=== PATIENT | female | born 1950 | race Caucasian/White ===

== ENCOUNTER → 2016-09-25 | Outpatient (CLI) | payer OTHER ==
[~2016-09-25] MED LIST: PANT40TA PO
--- NOTE | 2016-09-25 11:12 | DIAGNOSTIC IMAGING REPORT ---
CHEST CT WITHOUT CONTRAST CT DOSE: 197.55 mGy.cm HISTORY: Lung nodules PULM NODULES TECHNIQUE: Multiaxial CT images of the chest were performed without contrast. COMPARISON: 08/25/2015 FINDINGS: The lungs are clear. The mediastinal vascular structures are within normal limits. No mediastinal or hilar lymphadenopathy. No pleural effusion or pneumothorax. Limited views of the upper abdomen demonstrate a normal liver and spleen. Pulmonary nodularity is nonprogressive. No focal infiltrate. No significant mediastinal or hilar adenopathy. IMPRESSION: Minimal parenchymal nodularity unchanged from the prior study. No new or interval process. Electronically signed by: Francisco Lemos M.D. 09/25/2016 11:11 AM Dictated Date/Time: 09/25/2016 11:08 AM
== END | disposition home or self-care (01) ==
LOC: C.CTS 10:02
PROVIDERS: ATTEND Family Medicine
DX: R91.8 Other nonspecific abnormal finding of lung field (principal)

== ENCOUNTER → 2017-09-23 | Outpatient (CLI) | payer OTHER ==
--- NOTE | 2017-09-23 09:27 | DIAGNOSTIC IMAGING REPORT ---
(CHEST) THORAX WITHOUT CT DOSE: 165.05 mGycm HISTORY: R91.8 Pulmonary nodules TECHNIQUE: Multiaxial CT images of the chest were performed without contrast. A dose lowering technique was utilized adhering to the principles of ALARA. COMPARISON: Chest CT 09/25/2016 and 08/25/2015. FINDINGS: The central airways are patent. No pleural effusions. No pneumothorax. Biapical pleural-parenchymal scarlike densities remain unchanged. Emphysema. Stable 4 mm nodule within the right lung apex on image 45. Stable 3 mm nodule in the right upper lobe medially abutting the mediastinal surface on image 133. Calcified granuloma the base of the right lower lobe. Stable fibronodular nodule within the left lower lobe on image 189. No new pulmonary nodules identified. No suspicious lytic or blastic osseous lesions. Calcified granulomas within the spleen. Bilateral nephrolithiasis. Nodular thickening and partially calcified right adrenal gland, unchanged. Stable 11 mm hyperdense lesion within the upper pole the left kidney. Bilateral thyroid nodules with the largest on the right measuring 11 mm. Moderate thickening of the esophagus which is partially fluid-filled and mildly distended. This remains unchanged. Calcified right hilar lymph nodes. No mediastinal or hilar lymphadenopathy. The heart remains borderline enlarged. Normal caliber thoracic aorta. IMPRESSION: 1. Stable subcentimeter bilateral pulmonary nodules. These demonstrate greater than 2 year stability and are therefore likely benign. No new pulmonary nodules identified. 2. Emphysema. 3. No change in the mildly dilated esophagus demonstrating a moderately thickened wall. If not previously performed, endoscopy is recommended for further evaluation. 4. Additional findings as described above. Electronically signed by: Norman Moore M.D. 09/23/2017 9:26 AM Dictated Date/Time: 09/23/2017 9:17 AM
== END | disposition home or self-care (01) ==
LOC: C.CTS 08:13
PROVIDERS: ATTEND Nurse Practitioner
DX: R91.8 Other nonspecific abnormal finding of lung field (principal); J43.9 Emphysema, unspecified

== ENCOUNTER 2022-01-04 16:55 | Inpatient (IN) ==
[2022-01-04] MEDS ORDERED: SODIUM CHLORIDE 0.9% 500 ML IV STA (17:24)
[2022-01-04] MEDS ORDERED: dilTIAZem HCl 5 MG/ML 5 ML VIAL IV STA (17:24)
[2022-01-04] MEDS ORDERED: dilTIAZem HCl 5 MG/ML 5 ML VIAL IV ONE (17:24)
--- NOTE | 2022-01-04 17:32 | Emergency Department Note ---
History of Present Illness General Chief complaint: Referred by Doctor Stated complaint: REF BY MIC SCHERER Time Seen by Provider: 01/04/22 17:18 Source: patient History of Present Illness Provider complaint: Palpitations Onset (ago): hour(s) Location: chest Pain Consistency: + constant Quality: + other (Fluttering in chest) Relieved By: + none Associated symptoms: no chest pain, no cough, no diaphoresis, no fever/chills, no nausea/vomiting, no shortness of breath, no syncope or no weakness This is a 71-year-old female sent here from her doctor's office for new onset A. fib with RVR. The patient states that she was going to her doctor's office for routine checkup. While there she developed fluttering in her chest. Her doctor took her pulse and noted that she was tachycardic and had atrial fibrillation. She was immediately sent here. She continues to have palpitations. She denies any other symptoms. She has had no lightheadedness or weakness. She is not diaphoretic or having any chest discomfort or pain or shortness of breath. She denies any recent illness, fever, cough or cold symptoms, abdominal pain, vomiting, diarrhea or urinary symptoms. She did have some leg swelling at the [facility] but she states that she was up and walking around and standing on her feet quite a bit. The swelling has gone away. She denies any leg pain. She does not drink alcohol. She has no history of heart disease. Home Medications Medication Instructions Recorded Confirmed Type buspirone 7.5 mg tablet 7.5 mg PO BID PRN anxiety #30 tabs 06/20/21 01/04/22 Rx lorazepam 0.5 mg tablet 0.5 mg PO DAILY PRN anxiety #10 06/20/21 01/04/22 Rx tabs pantoprazole 40 mg tablet,delayed 40 mg PO DAILY #30 tabs 06/20/21 01/04/22 Rx release rizatriptan 10 mg tablet 10 mg PO Q2H PRN migraine headache 06/20/21 01/04/22 Rx #30 tabs lisinopril 20 mg tablet 20 mg PO DAILY #30 tabs 11/29/21 01/04/22 Rx collagen,hydrolysate 500 mg-biotin 1 cap PO DAILY 01/04/22 01/04/22 History 800 mcg-ascorbic acid 50 mg capsule melatonin 5 mg chewable tablet 5 mg PO HS PRN Sleep 01/04/22 01/04/22 History Allergies Allergy/AdvReac Type Severity Reaction Status Date / Time No Known Allergies Allergy Verified 01/04/22 17:52 Past Med/Surg History Medical History (Updated 01/04/22 @ 18:37 by Antoni Ureña MD) Achalasia type 1, was followed by [facility], s/p POEM proce done before 2016 Adrenal nodule Anemia Bleeding disorder Esophageal stricture Has had multiple dilations over the last several years. Laceration Lung mass Palpitations Solitary pulmonary nodule Was followed by [facility], last scan in 2018, at that time nodule remains stable, no further follow-up recommended Surgical History History of elbow surgery Family History Father Gallbladder disease Prostate cancer Sister Lung disease Mother Breast cancer Denies family history of Ovarian cancer Myocardial infarction Colorectal cancer Social History Smoking Status: Never smoker Second Hand Exposure: No; Hx Alcohol Use: No Hx Substance Use: No Preferred Language: Dutch Communication Ability: Effective Visual Impairment: Limited Hearing Ability: Normal [employer] Required: No Beliefs That Will Affect Care: None marital status: Current Living Situation: Spouse current occupational status: employed How many Children do You have: 2 Feels Safe at Home: Yes caffeine: Yes during the past year weight has: remained stable Dental Care, Regularly: Yes Physical Activity Frequency: 1-2 Times per Week Seatbelt Use: always Sunscreen Use: Yes Do you think of yourself as: straight/heterosexual Gender Identity: Female Assistive Devices: Glasses Review of Systems See HPI for pertinent positives & negatives. and A total of 10 systems reviewed and were otherwise negative Physical Exam Vital Signs Vital Signs - 24 hr 01/04/22 16:57 01/04/22 17:24 01/04/22 17:29 Temperature 36.1 C L Temperature Source Temporal Artery Scan Pulse Rate 139 H 161 H 141 H Pulse Rate from SpO2 Sensor 144 H 130 H Respiratory Rate 20 18 19 Respiratory Effort / Characteristics Non-Labored Spontaneous Respiratory Depth Normal Respiratory Pattern Regular Blood Pressure 129/97 Blood Pressure Mean 107 Pulse Oximetry 99 99 99 Oxygen Delivery Method Room Air Sepsis Recent Fever Within 48 Hours No Sepsis New/Unexplained Change in Mental Status No Sepsis Action Taken by Nursing No Action Required 01/04/22 17:29 01/04/22 17:30 01/04/22 17:39 Temperature Temperature Source Pulse Rate 115 H 103 H Pulse Rate from SpO2 Sensor 115 H 102 H Respiratory Rate 16 17 Respiratory Effort / Characteristics Respiratory Depth Respiratory Pattern Blood Pressure 141/105 H Blood Pressure Mean 117 Pulse Oximetry 98 99 Oxygen Delivery Method Sepsis Recent Fever Within 48 Hours Sepsis New/Unexplained Change in Mental Status Sepsis Action Taken by Nursing 01/04/22 17:39 01/04/22 17:45 01/04/22 18:00 Temperature Temperature Source Pulse Rate 112 H Pulse Rate from SpO2 Sensor 94 H Respiratory Rate 16 Respiratory Effort / Characteristics Respiratory Depth Respiratory Pattern Blood Pressure 148/91 H 129/88 Blood Pressure Mean 110 101 Pulse Oximetry 98 Oxygen Delivery Method Sepsis Recent Fever Within 48 Hours Sepsis New/Unexplained Change in Mental Status Sepsis Action Taken by Nursing 01/04/22 18:00 Temperature Temperature Source Pulse Rate 122 H Pulse Rate from SpO2 Sensor 125 H Respiratory Rate 27 H Respiratory Effort / Characteristics Respiratory Depth Respiratory Pattern Blood Pressure Blood Pressure Mean Pulse Oximetry 97 Oxygen Delivery Method Sepsis Recent Fever Within 48 Hours Sepsis New/Unexplained Change in Mental Status Sepsis Action Taken by Nursing Constitutional: Vital signs reviewed. Eyes: Pupils are equal round reactive to light. Conjunctiva are noninjected. ENT: Pharynx is clear without erythema or exudate. Mucous membranes are moist. Neck supple without meningeal signs. Respiratory: Clear to auscultation bilaterally. Breath sounds are equal bilaterally. Cardiovascular: Tachycardic. Heart rate 155. GI: Soft, nondistended and nontender. Bowel sounds are present. Musculoskeletal: No peripheral edema. No lower extremity tenderness. Integumentary: No cyanosis. or jaundice. Neurological: The patient is awake and alert. No focal deficits. Psychiatric: Anxious. Course Administered Medications Discontinued Medications Diltiazem HCl (Diltiazem Hcl 5 Mg/Ml 5 Ml Vial) Confirm Administered Dose 25 mg IV .STSocialDeck-MED ONE Stop: 01/04/22 17:25 Last Admin: 01/04/22 17:30 Dose: Not Given Documented By: RDD Diltiazem HCl (Diltiazem Hcl 5 Mg/Ml 5 Ml Vial) 10 mg IV NOW STA Stop: 01/04/22 17:25 Last Admin: 01/04/22 17:27 Dose: 10 mg Documented By: YAMINI Co-signed By: YAEL Sodium Chloride (Nss) 500 mls @ 999 mls/hr IV .Q31M STA Stop: 01/04/22 17:54 Last Admin: 01/04/22 17:27 Dose: 999 mls/hr Documented By: YAMINI Critical Care Time Critical Care Time: Yes Total Critical Care Time: 35 I have personally spent approximately 35 minutes of critical care time in the direct management of this patient. This includes bedside care, interpretation of diagnostic studies, and testing, discussion with consultants, patient, and family members, and other required patient management activities. These minutes are in excess of all separately billable procedures. Medical Decision Making Differential Diagnosis Dysrhythmia, A. fib with RVR, metabolic derangement, hyperthyroidism, electrolyte abnormality, ACS Medical Records Attestation: I reviewed the patient's medical records. I did perform a limited focused review of portions of the patient's old chart on the electronic medical record. The patient was seen at her doctor's office today and found to be in A. fib and tachycardic and was sent here immediately. Home Medications Current Medication List: was personally reviewed by me Laboratory Data Attestation: I reviewed the patient's lab results. Result diagrams: 01/04/22 Unknown 01/04/22 17:20 Lab Results 01/04/22 01/04/22 01/04/22 Range/Units 17:20 17:20 17:39 WBC (4.8-10.8) K/ul RBC (3.93-5.22) M/uL Hgb (12.0-16.0) g/dl Hct (34.1-44.9) % MCV (80.0-100.0) fL MCH (25.0-34.0) pg MCHC (32.0-36.0) g/dL RDW Std Deviation (36.4-46.3) fL RDW Coeff of Alfonzo (11.5-14.5) % Plt Count (130-400) K/uL MPV (9.4-12.3) fL Immature Gran % (Auto) % Neut % (Auto) % Lymph % (Auto) % Beadle % (Auto) % Eos % (Auto) % Baso % (Auto) % Neut # (Auto) (1.4-6.5) K/uL Lymph # (Auto) (1.2-3.4) K/uL Beadle # (Auto) (0.24-0.82) K/uL Eos # (Auto) (0-0.50) K/uL Baso # (Auto) (0-0.2) K/uL Immature Gran # (Auto) (0.00-0.02) K/uL Sodium 138 (136-145) mmol/L Potassium 4.0 (3.5-5.1) mmol/L Chloride 103 (98-107) mmol/L Carbon Dioxide 26 (21-32) mmol/L Anion Gap 9 (3-11) BUN 19 (6-23) mg/dl Creatinine 1.03 (0.6-1.2) mg/dl Est Cr Clr Drug Dosing 47.6 ml/min Est GFR ( Amer) 63.8 ml/min Est GFR (Non-Af Amer) 55.0 ml/min BUN/Creatinine Ratio 18.4 (10-20) Glucose 86 (70-99(Fasting)) mg/dl Calcium 9.5 (8.5-10.1) mg/dl Magnesium 1.9 (1.7-2.4) mg/dl Total Bilirubin 1.1 H (0.2-1.0) mg/dl AST 19 (13-39) U/L ALT 17 (7-52) U/L Alkaline Phosphatase 74 (34-104) U/L Troponin I High Sens 7.3 (0-14) pg/ml Total Protein 6.4 (6.0-8.3) gm/dl Albumin 4.3 (3.4-5.0) gm/dl Globulin 2.1 L (2.5-4.0) gm/dl Albumin/Globulin Ratio 2.0 (0.9-2) TSH 1.463 (0.300-4.500) uIu/ml SARS-CoV-2, RNA, NAAT NEGATIVE (NEGATIVE) 01/04/22 Range/Units Unknown WBC 7.59 (4.8-10.8) K/ul RBC 3.62 L (3.93-5.22) M/uL Hgb 11.7 L (12.0-16.0) g/dl Hct 35.7 (34.1-44.9) % MCV 98.6 (80.0-100.0) fL MCH 32.3 (25.0-34.0) pg MCHC 32.8 (32.0-36.0) g/dL RDW Std Deviation 46.2 (36.4-46.3) fL RDW Coeff of Alfonzo 12.7 (11.5-14.5) % Plt Count 221 (130-400) K/uL MPV 9.9 (9.4-12.3) fL Immature Gran % (Auto) 0.3 % Neut % (Auto) 66.0 % Lymph % (Auto) 20.8 % Beadle % (Auto) 10.0 % Eos % (Auto) 1.7 % Baso % (Auto) 1.2 % Neut # (Auto) 5.01 (1.4-6.5) K/uL Lymph # (Auto) 1.58 (1.2-3.4) K/uL Beadle # (Auto) 0.76 (0.24-0.82) K/uL Eos # (Auto) 0.13 (0-0.50) K/uL Baso # (Auto) 0.09 (0-0.2) K/uL Immature Gran # (Auto) 0.02 (0.00-0.02) K/uL Sodium (136-145) mmol/L Potassium (3.5-5.1) mmol/L Chloride (98-107) mmol/L Carbon Dioxide (21-32) mmol/L Anion Gap (3-11) BUN (6-23) mg/dl Creatinine (0.6-1.2) mg/dl Est Cr Clr Drug Dosing ml/min Est GFR ( Amer) ml/min Est GFR (Non-Af Amer) ml/min BUN/Creatinine Ratio (10-20) Glucose (70-99(Fasting)) mg/dl Calcium (8.5-10.1) mg/dl Magnesium (1.7-2.4) mg/dl Total Bilirubin (0.2-1.0) mg/dl AST (13-39) U/L ALT (7-52) U/L Alkaline Phosphatase (34-104) U/L Troponin I High Sens (0-14) pg/ml Total Protein (6.0-8.3) gm/dl Albumin (3.4-5.0) gm/dl Globulin (2.5-4.0) gm/dl Albumin/Globulin Ratio (0.9-2) TSH (0.300-4.500) uIu/ml SARS-CoV-2, RNA, NAAT (NEGATIVE) Imaging Data Radiologist's Impression: Chest X-Ray 01/04/22 17:25 XR chest 1V portable HISTORY: Dysrhythmia COMPARISON: Chest 08/25/2015. FINDINGS: No pneumothorax. The heart remains mildly enlarged. There is mild central pulmonary vascular congestion without overt edema. There are trace bilateral pleural effusions. No new focal lung consolidations to suggest pneumonia. Calcified granuloma within the right lung base again noted. IMPRESSION: Cardiomegaly with mild central pulmonary vascular congestion and trace bilateral pleural effusions. ACT 112: Negative or not required by law. Electronically signed by: Norman Moore M.D. 01/04/2022 6:19 PM ECG Data Attestation: I personally reviewed and interpreted this ECG as follows: Indication: + palpitations and + tachycardia Rate (beats per minute): 141 Rhythm: + atrial fibrillation ECG ST segments: + Nonspecific ST abnormalities; no ST elevation ECG Findings: + PVCs Comparison ECG Date: no prior available MDM Narrative I did evaluate the patient as noted above. The patient went to her doctor's office today for routine checkup. She developed palpitations there and was found to be tachycardic with new onset atrial fibrillation. She otherwise denies any complaints and has no chest discomfort or pain or shortness of breath or lightheadedness. She is not sure if she has had these palpitations in the past. She does not drink alcohol. IV access was established. I did place an order for continuous cardiac monitoring. The monitor showed atrial fibrillation with a heart rate of 155. I did order and personally review the patient's 12- lead EKG as described above. She has A. fib with RVR with a heart rate of 141. There are nonspecific ST changes as well as a PVC. I did order normal saline IV as well as Cardizem 10 mg IV. Her heart rate did come down to about 120. She does state that her palpitations are gone despite her still being in atrial fibrillation with tachycardia. She was started on a continuous Cardizem drip. I did order and personally reviewed the images of the patient's chest x-ray as described above. She has mild cardiomegaly with central pulmonary vascular congestion. I did order and review the patient's blood work as noted in the electronic medical record. CBC demonstrates a hemoglobin of 11.7. There is no leukocytosis. CMP is unremarkable other than a total bili of 1.1. TSH and troponin are within normal limits. Her heart rate is approximately 100 on the Cardizem drip. She is having no symptoms. I did discuss the case with the hospitalist and senior case manager. The decision for initiation of anticoagulation was deferred to the inpatient team. Screening COVID test is negative. Impression & Plan Atrial fibrillation with rapid ventricular response, New onset a-fib Discharge Plan Visit Data Chief Complaint: Referred by Doctor Stated Complaint: REF BY MIC SCHERER ED Provider: Antoni Ureña Discharge Problem: Atrial fibrillation with rapid ventricular response, New onset a-fib Patient Disposition: Being Evaluated by Hospitalist Forms Stand Alone Forms: My [facility] Prescriptions Prescriptions: No Action lisinopril 20 mg tablet 20 mg PO DAILY Qty: 30 11RF Rx Instructions: pt aware dose change lorazepam 0.5 mg tablet 0.5 mg PO DAILY PRN (Reason: anxiety) Qty: 10 1RF Rx Instructions: as needed for panic attacks pantoprazole 40 mg tablet,delayed release (DR/EC) 40 mg PO DAILY Qty: 30 11RF rizatriptan 10 mg tablet 10 mg PO Q2H PRN (Reason: migraine headache) Qty: 30 5RF Rx Instructions: until response; not to exceed 3 doses in a 24 hour period buspirone 7.5 mg tablet 7.5 mg PO BID PRN (Reason: anxiety) Qty: 30 11RF melatonin 5 mg Tablet,Chewable 5 mg PO HS PRN (Reason: Sleep) [id number] acid 500 mg-800 mcg- 50 mg Capsule 1 cap PO DAILY Referrals Referrals: Ghazal Alcantar CRNP [Primary Care Provider] -
[2022-01-04] MEDS ORDERED: STAT IV Infusion **Titration per Protocol STA (17:39)
[2022-01-04 17:59] LABS: Basophils # (auto) 0.09 K/uL (0-0.2); Basophils % (auto) 1.2 %; Eosinophils # (auto) 0.13 K/uL (0-0.50); Eosinophils % (auto) 1.7 %; Hematocrit (blood only) 35.7 % (34.1-44.9); Hemoglobin 11.7 g/dl (12.0-16.0); Immature Granulocytes # (auto) 0.02 K/uL (0.00-0.02); Immature Granulocytes % (auto) 0.3 %; Lymphocytes # (auto) 1.58 K/uL (1.2-3.4); Lymphocytes % (auto) 20.8 %; Mean Corpuscular Hemoglobin 32.3 pg (25.0-34.0); Mean Corpuscular Hgb Conc 32.8 g/dL (32.0-36.0); Mean Corpuscular Volume 98.6 fL (80.0-100.0); Mean Platelet Volume 9.9 fL (9.4-12.3); Monocytes # (auto) 0.76 K/uL (0.24-0.82); Neutrophils # (auto) 5.01 K/uL (1.4-6.5); Platelet Count 221 K/uL (130-400); RDW Coefficient of Variation 12.7 % (11.5-14.5); RDW Standard Deviation 46.2 fL (36.4-46.3); Red Blood Count 3.62 M/uL (3.93-5.22); White Blood Count 7.59 K/ul (4.8-10.8)
--- NOTE | 2022-01-04 18:21 | XRay Report ---
XR chest 1V portable HISTORY: Dysrhythmia COMPARISON: Chest 08/25/2015. FINDINGS: No pneumothorax. The heart remains mildly enlarged. There is mild central pulmonary vascula r congestion without overt edema. There are trace bilateral pleural effusions. No new focal lung cons olidations to suggest pneumonia. Calcified granuloma within the right lung base again noted. IMPRESSION: Cardiomegaly with mild central pulmonary vascular congestion and trace bilateral pleural effusions. ACT 112: Negative or not required by law. Electronically signed by: Norman Moore M.D. 01/04/2022 6:19 PM
[2022-01-04 18:22] LABS: Albumin Level 4.3 gm/dl (3.4-5.0); BUN Creatinine Ratio 18.4 (10-20); Bilirubin,Total 1.1 mg/dl (0.2-1.0); Calcium 9.5 mg/dl (8.5-10.1); Creatinine Clr Calc Pharmacy 47.6 ml/min; Est GFR (African American) 63.8 ml/min; Globulin 2.1 gm/dl (2.5-4.0); Magnesium 1.9 mg/dl (1.7-2.4); Total Protein 6.4 gm/dl (6.0-8.3)
[2022-01-04 18:28] LABS: Troponin I High Sensitivity 7.3 pg/ml (0-14)
[2022-01-04] MEDS: dilTIAZem HCL 125 MG in DEXTROSE 5% 100 ML IV SCH (18:39)
--- NOTE | 2022-01-04 19:39 | History & Physical Report ---
Date of Service January 04, 2022 Assessment & Plan (1) Atrial fibrillation with rapid ventricular response: Plan: - New onset today, is unknown patient went into A. fib as she was asymptomatic when was discovered, however as bad palpitations arrival to the ED - Started on Cardizem gtt in ED, currently at 5/hour. We will add on p.o. Cardizem 30 mg every 6 hours. - K 4.0, Mg++ 1.9, will give 1 g magnesium with IVF. - LRs at 125cc/hr. - CXR read as pulm vascular congestion with trace effusions, but there is no evidence of volume overload on exam. - TSH 1.463. - Echo in AM. - Cardiology consult placed, appreciate their recommendations. - Will start on Eliquis; per chart review, history of bleeding ulcers ~ 5 years ago, remains on pantoprazole 40 mg daily. (2) DONNA (acute kidney injury): Plan: - Cr mildly elevated at 1.03, baseline 0.80. - Hold lisinopril, provide IVF, repeat on AM labs. (3) Hypertension: Plan: - Home regimen includes lisinopril 20 mg daily, her Cr is 1.03, baseline is 0.80. - Hold lisinopril tomorrow. Will be on PO Cardizem in addition to Cardizem gtt overnight. (4) Chronic GERD: Plan: - With bleeding ulcers 5-6 years ago, asymptomatic since, will still anticoagulate with Eliquis for now and continue protonix, monitor for s/s of GI bleed. (5) Anxiety: Plan: - Continue BuSpar 7.5 mg BID, lorazepam 0.5 mg prn. (6) Migraine headache: Plan: - History of, has rizatriptan prn for migraines however they have significantly decreased since HTN has been controlled with lisinopril. (7) Solitary pulmonary nodule: Plan: - [facility], last scan in 2018, at that time nodule remains stable, no further follow-up recommended. Plan - Admit to PCU. - SCDs and Eliquis or VTE ppx. - Full Code. History of Present Illness Chief Complaint: new onset a fib RVR at PCP appt today Primary Care Provider: MENA Chavarria Chhaya Bess is a 71-year-old female with past medical history significant for hypertension, anxiety, PAD 5 years ago GERD, and headaches who is presenting today for recommendation of her PCP for new onset A. fib. Patient was at her PCP today for routine checkup when she was incidentally discovered to be in A. fib RVR based on physical exam and EKG. her promptly brought over here for evaluation. Since arrival, she has noted palpitations, but otherwise has been asymptomatic prior to arrival without chest pain, palpitation, shortness of breath, fatigue, presyncope or syncope. She does not have personal history of A. fib or family history that she is aware of. She had recently worked with the [employer] and noticed swelling in both her legs, however this had resolved after being off her feet. She thinks she has been hydrating okay last couple days, but was with her grandchildren this week and physically active than usual. She history of anxiety and high blood pressure, no known cardiac disease. Upon presentation to ED, patient presented with a heart rate of 161, [id number] after Cardizem drip started. Vitals otherwise within normal limits, hemodynamically stable. Labs significant for slight decrease in hemoglobin, 11.7 today, creatinine slightly bumped at 1.03, baseline 0.8. Potassium 4.0, magnesium 1.9. T bili 1.1, without any other LFT abnormalities. Her troponin is 7.3 TSH is 1.463. COVID-negative. Allergies Allergy/AdvReac Type Severity Reaction Status Date / Time No Known Allergies Allergy Verified 01/04/22 17:52 Home Medications Medication Instructions Recorded Confirmed Type buspirone 7.5 mg tablet 7.5 mg PO BID PRN anxiety #30 tabs 06/20/21 01/04/22 Rx lorazepam 0.5 mg tablet 0.5 mg PO DAILY PRN anxiety #10 06/20/21 01/04/22 Rx tabs pantoprazole 40 mg tablet,delayed 40 mg PO DAILY #30 tabs 06/20/21 01/04/22 Rx release rizatriptan 10 mg tablet 10 mg PO Q2H PRN migraine headache 06/20/21 01/04/22 Rx #30 tabs collagen,hydrolysate 500 mg-biotin 1 cap PO DAILY 01/04/22 01/04/22 History 800 mcg-ascorbic acid 50 mg capsule melatonin 5 mg chewable tablet 5 mg PO HS PRN Sleep 01/04/22 01/04/22 History apixaban 5 mg tablet (Eliquis) 5 mg PO BID #60 tabs 01/05/22 Rx diltiazem HCl 240 mg 240 mg PO DAILY #30 caps 01/05/22 Rx capsule,extended release 24 hr Past Med/Surg History Medical History (Updated 01/05/22 @ 13:51 by Darnell Reid DO) Achalasia type 1, was followed by [facility] [place], s/p POEM proce done before 2016 Adrenal nodule Anemia Bleeding disorder Esophageal stricture Has had multiple dilations over the last several years. Laceration Lung mass Palpitations Solitary pulmonary nodule Was followed by the [facility], last scan in 2018, at that time nodule remains stable, no further follow-up recommended Surgical History History of elbow surgery Family History Father Gallbladder disease Prostate cancer Sister Lung disease Mother Breast cancer Denies family history of Ovarian cancer Myocardial infarction Colorectal cancer Social History Smoking Status: Never smoker Second Hand Exposure: No; Hx Alcohol Use: Yes Hx Substance Use: No Preferred Language: Colombian Communication Ability: Effective Visual Impairment: Limited Hearing Ability: Normal Lining Finisher Required: No Beliefs That Will Affect Care: None marital status: Current Living Situation: Spouse current occupational status: employed How many Children do You have: 2 Feels Safe at Home: Yes caffeine: Yes during the past year weight has: remained stable Dental Care, Regularly: Yes Physical Activity Frequency: 1-2 Times per Week Seatbelt Use: always Sunscreen Use: Yes Do you think of yourself as: straight/heterosexual Gender Identity: Female Assistive Devices: None Review of Systems Review of Systems: Constitutional: No fever/chills, weakness, fatigue, myalgias, anorexia, night sweats Eyes: No diplopia, no worsening or blurred vision ENT: normal hearing, no trouble swallowing Respiratory: No cough, sputum, dyspnea at rest or on exertion Cardiovascular: palpitations since arrival in ED; No chest pain, tightness Abdomen: No pain, nausea, vomiting, diarrhea or constipation : Denies dysuria, hematuria, increased urgency/frequency, urinary retention Musculoskeletal: No joint pain, calf pain, swelling Neurologic: No weakness, numbness/tingling, or balance problems Psychiatric: No anxiety or depression Skin: No rash or itch Physical Exam Physical Exam: Physical exam: General: awake, alert, no apparent distress Head: Normocephalic, atraumatic ENT: PERRL, EOMI, no pharyngeal exudate, mucous membranes moist Chest: Clear to auscultation, on room air, no adventitious breath sounds Cardiac: Tachycardic with irregular rhythm consistent with A. fib RVR; no murmur, no JVD, normal peripheral pulses, good capillary refill Abdominal: NABS x 4 quadrants, soft, nontender to palpation, no rebound, guarding or tenderness Extremities: Normal inspection, no peripheral edema or erythema, calfs nontender to palpation Psych: Normal mood and affect Neuro: AAO x 3, strength intact bilaterally and rated 5/5, no motor deficits, speech is clear, no peripheral sensory deficits Skin: no rash or erythema Results & Data Results & Data ([facility]) Vital Signs (Past 12 Hours) Vital Signs Temp Pulse Pulse Resp BP BP Pulse Ox 01/04/22 19:00 123 H 20 128/89 97 01/04/22 18:38 119 H 16 120/95 98 01/04/22 18:00 122 H 27 H 97 01/04/22 18:00 129/88 01/04/22 17:45 112 H 16 98 01/04/22 17:39 148/91 H 01/04/22 17:39 103 H 17 99 01/04/22 17:30 115 H 16 98 01/04/22 17:29 141/105 H 01/04/22 17:29 141 H 19 99 01/04/22 17:24 161 H 18 99 01/04/22 16:57 36.1 C L 139 H 20 129/97 99 O2 Del Method 01/04/22 19:00 Room Air 01/04/22 18:38 Room Air 01/04/22 18:00 01/04/22 18:00 01/04/22 17:45 01/04/22 17:39 01/04/22 17:39 01/04/22 17:30 01/04/22 17:29 01/04/22 17:29 01/04/22 17:24 01/04/22 16:57 Room Air Laboratory Results Abnormal lab results 01/04/22 01/04/22 Range/Units 17:20 Unknown RBC 3.62 L (3.93-5.22) M/uL Hgb 11.7 L (12.0-16.0) g/dl Total Bilirubin 1.1 H (0.2-1.0) mg/dl Globulin 2.1 L (2.5-4.0) gm/dl Diagnostic Findings Chest X-Ray 01/04/22 17:25 XR chest 1V portable HISTORY: Dysrhythmia COMPARISON: Chest 08/25/2015. FINDINGS: No pneumothorax. The heart remains mildly enlarged. There is mild central pulmonary vascular congestion without overt edema. There are trace bilateral pleural effusions. No new focal lung consolidations to suggest pneumonia. Calcified granuloma within the right lung base again noted. IMPRESSION: Cardiomegaly with mild central pulmonary vascular congestion and trace bilateral pleural effusions. ACT 112: Negative or not required by law. Electronically signed by: Norman Moore M.D. 01/04/2022 6:19 PM ECG Additional Comments: Atrial fibrillation with rapid ventricular response with premature ventricular or aberrantly conducted complexes Nonspecific ST abnormality Abnormal ECG When compared with ECG of 25-AUG-2015 20:01, Atrial fibrillation has replaced Sinus rhythm Vent. rate has increased BY 69 BPM Nonspecific T wave abnormality now evident in Anterior leads. Code Status & VTE Plan Code Status Full Code. Supervising Physician Co-Signing Physician Notes Attending addendum: I have physically seen this patient, have supervised the LISA's activities, and agree with the H&P unless as otherwise noted. Assessment and Plan: Atrial fibrillation with RVR- The patient will be admitted to telemetry for serial cardiac enzymes, serial EKG's, cardiac rhythm monitoring and a 2-D echocardiogram with Dopplers. New onset today For now, continue Cardizem drip begun in ED, currently 5 mg/h Start Cardizem 30 mg p.o. every 6 hours Potassium 4.0, magnesium 1.9, will will give magnesium 1 g IV and follow serially LR 125 mils per hour Start Eliquis per protocol Consult cardiology Acute kidney injury- Creatinine 1.03, with baseline 0.80 Hold lisinopril IV fluids as above and recheck laboratories in a.m. GERD/history of bleeding ulcers 5 to 6 years ago- Begin anticoagulation as noted above, continue Protonix Remaining orders and notations as noted PG Care Time/CCT Total # of Minutes Spent Total Time Spent with Patient: Total time spent is greater than 50% in coordination of care (as documented) at patient's floor/unit and/or counseling patient: Coding Level of Care Code 46454 Initial Inpt Care Lvl 3 Diagnoses Atrial fibrillation with rapid ventricular response I48.91 DONNA (acute kidney injury) N17.9 Hypertension I10 Chronic GERD K21.9 Anxiety F41.9 Migraine headache G43.909 Solitary pulmonary nodule R91.1
[2022-01-04] MEDS ORDERED: MAGNESIUM SULFATE / D5W 1 GM/100 ML BAG IV ONE (19:44)
[2022-01-04] MEDS ORDERED: LACTATED RINGER'S 1,000 ML IV SCH (19:45)
[2022-01-04] MEDS ORDERED: busPIRone 7.5 MG TAB PO PRN (21:59)
[2022-01-04] MEDS ORDERED: ONDANSETRON INJ 2 MG/ML 2 ML VIAL IV PRN (21:59)
[2022-01-04] MEDS ORDERED: LORazepam 0.5 MG TAB PO PRN (21:59)
[2022-01-04] MEDS ORDERED: RIZATRIPTAN BENZOATE 10 MG TAB PO PRN (21:59)
[2022-01-04] MEDS ORDERED: MELATONIN 3 MG TAB PO PRN (21:59)
[2022-01-04] MEDS: APIXABAN 5 MG TABLET PO SCH (23:19)
[2022-01-04] MEDS: dilTIAZem HCL 30 MG TAB PO SCH (23:20)
[2022-01-05] MEDS: dilTIAZem HCL 30 MG TAB PO SCH ×2 (04:33→11:45)
[2022-01-05 06:04] LABS: Basophils # (auto) 0.05 K/uL (0-0.2); Basophils % (auto) 0.9 %; Eosinophils # (auto) 0.16 K/uL (0-0.50); Eosinophils % (auto) 2.8 %; Hematocrit (blood only) 34.1 % (34.1-44.9); Hemoglobin 11.1 g/dl (12.0-16.0); Immature Granulocytes # (auto) 0.01 K/uL (0.00-0.02); Immature Granulocytes % (auto) 0.2 %; Lymphocytes # (auto) 1.46 K/uL (1.2-3.4); Lymphocytes % (auto) 25.4 %; Mean Corpuscular Hemoglobin 32.4 pg (25.0-34.0); Mean Corpuscular Hgb Conc 32.6 g/dL (32.0-36.0); Mean Corpuscular Volume 99.4 fL (80.0-100.0); Monocytes # (auto) 0.63 K/uL (0.24-0.82); Neutrophils # (auto) 3.44 K/uL (1.4-6.5); Neutrophils % (auto) 59.7 %; Platelet Count 199 K/uL (130-400); RDW Coefficient of Variation 12.8 % (11.5-14.5); Red Blood Count 3.43 M/uL (3.93-5.22); White Blood Count 5.75 K/ul (4.8-10.8)
[2022-01-05 06:19] LABS: BUN Creatinine Ratio 14.9 (10-20); Creatinine Clr Calc Pharmacy 56.3 ml/min; Est GFR (African American) 78.2 ml/min; Est GFR (Non-African American) 67.5 ml/min; Potassium 3.9 mmol/L (3.5-5.1)
[2022-01-05] MEDS ORDERED: ACETAMINOPHEN 500 MG TAB PO PRN (08:18)
--- NOTE | 2022-01-05 08:18 | Hospitalist Progress Note ---
Date of Service January 05, 2022 Assessment & Plan (1) Atrial fibrillation with rapid ventricular response: Plan: - New onset today, is unknown patient went into A. fib as she was asymptomatic when was discovered, however as bad palpitations arrival to the ED - Started on Cardizem gtt in ED, currently at 5/hour. We will add on p.o. Cardizem 30 mg every 6 hours. - K 4.0, Mg++ 1.9, will give 1 g magnesium with IVF. - LRs at 125cc/hr. - CXR read as pulm vascular congestion with trace effusions, but there is no evidence of volume overload on exam. - TSH 1.463. - Echo in AM. - Cardiology consult placed, appreciate their recommendations. - Will start on Eliquis; per chart review, history of bleeding ulcers ~ 5 years ago, remains on pantoprazole 40 mg daily. (2) DONNA (acute kidney injury): Plan: - Cr mildly elevated at 1.03, baseline 0.80. - Hold lisinopril, provide IVF, repeat on AM labs. (3) Hypertension: Plan: - Home regimen includes lisinopril 20 mg daily, her Cr is 1.03, baseline is 0.80. - Hold lisinopril tomorrow. Will be on PO Cardizem in addition to Cardizem gtt overnight. (4) Chronic GERD: Plan: - With bleeding ulcers 5-6 years ago, asymptomatic since, will still anticoagulate with Eliquis for now and continue protonix, monitor for s/s of GI bleed. (5) Anxiety: Plan: - Continue BuSpar 7.5 mg BID, lorazepam 0.5 mg prn. (6) Migraine headache: Plan: - History of, has rizatriptan prn for migraines however they have significantly decreased since HTN has been controlled with lisinopril. (7) Solitary pulmonary nodule: Plan: - Was [facility], last scan in 2018, at that time nodule remains stable, no further follow-up recommended. Plan - Admit to PCU. - SCDs and Eliquis or VTE ppx. - Full Code. Admission and Anticipated Discharge Date Admission Date: January 04, 2022 Results & Data Results & Data ([facility]) Vital Signs (Past 12 Hours) Vital Signs Temp Pulse Pulse Pulse Resp BP BP 01/05/22 07:00 74 01/05/22 04:33 117/65 01/05/22 03:27 97.7 F 85 14 111/61 01/04/22 22:35 99 H 01/04/22 22:05 101 H 01/04/22 23:15 97.5 F L 90 16 01/04/22 22:01 97.7 F 108 H 107 H 21 01/04/22 21:15 109 H 19 118/78 01/04/22 21:00 106 H 17 124/76 01/04/22 20:46 109 H 16 117/82 01/04/22 20:30 131 H 12 112/84 BP Pulse Ox O2 Del Method 01/05/22 07:00 01/05/22 04:33 01/05/22 03:27 95 Room Air 01/04/22 22:35 01/04/22 22:05 01/04/22 23:15 116/84 95 Room Air 01/04/22 22:01 144/97 H 97 01/04/22 21:15 96 Room Air 01/04/22 21:00 97 Room Air 01/04/22 20:46 94 Room Air 01/04/22 20:30 95 Room Air PG Care Time/CCT Total # of Minutes Spent Total Time Spent with Patient: Total time spent is greater than 50% in coordination of care (as documented) at patient's floor/unit and/or counseling patient: Coding Diagnoses Atrial fibrillation with rapid ventricular response I48.91 DONNA (acute kidney injury) N17.9 Hypertension I10 Chronic GERD K21.9 Anxiety F41.9 Migraine headache G43.909 Solitary pulmonary nodule R91.1
[2022-01-05] MEDS: APIXABAN 5 MG TABLET PO SCH (08:59)
[2022-01-05] MEDS ORDERED: PANTOprazole 40 MG TAB PO SCH (09:00)
[2022-01-05] MEDS ORDERED: NON-FORMULARY MEDICATION (Collagen-Biotin-Ascorbic Acid 500 mg-800 mcg- 50 mg Capsule) PO SCH (09:00)
--- NOTE | 2022-01-05 09:31 | Cardiology Consultation ---
Date of Consultation January 05, 2022 Assessment & Plan (1) Atrial fibrillation with rapid ventricular response: Atrial Fibrillation w/ RVR - Patient asymptomatic - no palpitations, fatigue, lightheadedness, dyspnea, or change in exercise capacity - Echo showed moderate dilation of left atrium, thickening of the mitral valve with mild prolapse, and mod-sev mitral regurgitation - Rate Control Inpatient: Continue Cardizem 30 mg IR PO q6h Cardizem drip 5 mg/hr discontinued @ 1300 Outpatient: Can discharge on Cardizem 240 mg ER PO daily - Anticoagulation Recommend continuing Eliquis (Apixaban) 5 mg PO BID for stroke/embolism prevention CHADVASC Score = 3, patient's risk is moderate-high and indicates need for anticoagulation - Recommend regular f/u outpatient w/ PCP for stable/asymptomatic patients, sooner if symptoms arise Mitral Valve Regurgitation - Echocardiogram showed moderate to severe mitral valve regurgitation on 01/05/22 - Recommend follow up echocardiogram in 6 months Hypertension - Discontinue Lisinopril 20 mg PO daily due to addition of Cardizem (2) Mitral regurgitation: (3) Hypertension: Plan Recommendations relayed to inpatient team. Supervising Physician Co-Signing Physician Notes I agree with the history and physical and documentation presented above. I did examine the patient at the bedside. In summary, she presented for routine evaluation was discovered to have atrial fibrillation with a rapid ventricular rate. She has been treated with rate control agents here in the hospital. She has remained asymptomatic. She appears to have had a reasonable response to initial doses of diltiazem and I would suggest discharge on 240 mg of extended release diltiazem daily. As this has some antihypertensive fact I think we can discontinue her lisinopril. Will monitor blood pressure and rate response in the outpatient setting and adjust doses accordingly. She was started on appropriate anticoagulation She has significant mitral valve disease which is likely a contributor to her atrial fibrillation. She does not have overt symptoms of severe mitral regurgitation, she has some echocardiographic findings of pulmonary hypertension and presented with atrial fibrillation. Left ventricular chamber dimensions and function are normal. We will need to evaluate her valvular disease in more detail in the outpatient setting. History of Present Illness Reason for Consultation: AFib w/ RVR Requesting Physician: Charisse George PA-C Attending Physician: Antoni Tabares MD History of Present Illness Chhaya is a 71 year old female with history of HTN, anemia, migraines, GERD, and anxiety who is being evaluated for atrial fibrillation with rapid josey tricular rate. Patient was evaluated by her PCP 01/04/22 and incidentally discovered to be in Atrial Fibrillation, via irregularity on physial exam and EKG. Patient was asymptomatic upon presentation to PCP and ER. Patient presented to ED w/ HR 160s and Cardizem drip was started. Otherwise normal vital signs. HPI: - Onset: Patient notes that when she presented to her PCP 01/04 her blood pressure was 'perfect'. This is was abnormal for her as she typically experiences whitecoat hypertension and is elevated at her PCP's office. Upon auscultation, she notes that her PCP said her heart rate was irregular and performed an EKG. When the EKG showed Atrial Fibrillation she was sent directly to the ED. Patient notes that she has been asymptomatic, and remained so throughout her PCP visit and ER visit. - Prior: Patient has not had previous episodes of Atrial Fibrillation, she does not that she would occasionally have palpitations during stressful events in her life, but that they would subsequently resolve once the stressful event had passed. She did not experience any chest discomfort, lightheadedness, or shortness of breath during these events. - Assoc: Patient denies any active symptoms. She has no chest pain, shortness of breath, lightheadedness, abdominal pain, or nausea. She endorses a headache this morning, relieved by Tylenol, but believes this was because she had not eaten. 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 Social Hx: - Occupation: [employer] 9AM-4PM daily - Exercise: Walks regularly (20k steps daily), aerobics classes, lifts 5 lb weights daily from home - Smoking: Briefly in high school, occasional single cigarette, none since - Alcohol: One beverage yearly at [place] - Illicit: None. Uses CBD gummies to sleep - Caffeine: 2 cups regular coffee daily - Diet: Balanced, no recent changes - No recent medication changes or additional supplements Cardiac Hx: - Hypertension - Lisinopril 20 mg PO daily, 2 years - No other cardiac diagnosis Family Hx: - Father: strokes - Mother: none - No known FH of arrhythmias or AFib Bleeding Risk: - Patient notes Hx of 2 bleeding ulcers in her stomach in 2016. - She was hospitalized d/t syncope and anemia and required EGD to cauterize area. - Currently on Pantoprazole for GERD. Has had no recurrence. - No bleeding since - no hematemesis, hematochezia, or black tarry stools. - Patient has no hx of bleeding disorders and no FH of bleeding disorders. Allergies Allergy/AdvReac Type Severity Reaction Status Date / Time No Known Allergies Allergy Verified 01/04/22 17:52 Home Medications Medication Instructions Recorded Confirmed Type buspirone 7.5 mg tablet 7.5 mg PO BID PRN anxiety #30 tabs 06/20/21 01/04/22 Rx lorazepam 0.5 mg tablet 0.5 mg PO DAILY PRN anxiety #10 06/20/21 01/04/22 Rx tabs pantoprazole 40 mg tablet,delayed 40 mg PO DAILY #30 tabs 06/20/21 01/04/22 Rx release rizatriptan 10 mg tablet 10 mg PO Q2H PRN migraine headache 06/20/21 01/04/22 Rx #30 tabs collagen,hydrolysate 500 mg-biotin 1 cap PO DAILY 01/04/22 01/04/22 History 800 mcg-ascorbic acid 50 mg capsule melatonin 5 mg chewable tablet 5 mg PO HS PRN Sleep 01/04/22 01/04/22 History apixaban 5 mg tablet (Eliquis) 5 mg PO BID #60 tabs 01/05/22 Rx diltiazem HCl 240 mg 240 mg PO DAILY #30 caps 01/05/22 Rx capsule,extended release 24 hr Patient History Medical History (Updated 01/05/22 @ 13:51 by Darnell Reid DO) Achalasia type 1, [place] [facility] [place] s/p POEM proce done before 2015 Adrenal nodule Anemia Bleeding disorder Esophageal stricture Has had multiple dilations over the last several years. Laceration Lung mass Palpitations Solitary pulmonary nodule Was followed by the [facility], last scan in 2018, at that time nodule remains stable, no further follow-up recommended Surgical History History of elbow surgery Family History Father Gallbladder disease Prostate cancer Sister Lung disease Mother Breast cancer Denies family history of Ovarian cancer Myocardial infarction Colorectal cancer Social History Smoking Status: Never smoker Second Hand Exposure: No; Hx Alcohol Use: Yes Hx Substance Use: No Preferred Language: Kuwaiti Communication Ability: Effective Visual Impairment: Limited Hearing Ability: Normal Railroad Whe[employer] Ax[employer] Inspector Required: No Beliefs That Will Affect Care: None marital status: Current Living Situation: Spouse current occupational status: employed How many Children do You have: 2 Other Information That Helps Us Care for You: No Feels Safe at Home: Yes Safety Concerns: Feels Safe At This Time caffeine: Yes during the past year weight has: remained stable Dental Care, Regularly: Yes Physical Activity Frequency: 1-2 Times per Week Seatbelt Use: always Sunscreen Use: Yes Do you think of yourself as: straight/heterosexual Gender Identity: Female Assistive Devices: None Review of Systems Review of Systems: See HPI. Physical Exam Physical Exam: Gen: NAD, alert, interactive HEENT: Supple, no LAD, no JVD Resp:Non-labored, no wheezing/rhonchi/rales, CTAB CV:irregularly irregular rhythm, normal rate, normal S1/S2, no M/R/G Abd: Soft, non-distended, no TTP, normoactive bowels, no masses Extr: 2+ dp bilaterally, no edema Skin: No rashes lesions or erythema Results & Data ([facility]) Vital Signs (Past 12 Hours) Vital Signs Temp Pulse Pulse Pulse Resp BP BP 01/05/22 08:00 36.4 C L 104 H 18 120/69 01/05/22 07:00 74 01/05/22 04:33 117/65 01/05/22 03:27 36.5 C 85 14 111/61 01/04/22 22:35 99 H 01/04/22 22:05 101 H 01/04/22 23:15 36.4 C L 90 16 01/04/22 22:01 36.5 C 108 H 107 H 21 01/04/22 21:15 109 H 19 118/78 BP Pulse Ox O2 Del Method 01/05/22 08:00 95 Room Air 01/05/22 07:00 01/05/22 04:33 01/05/22 03:27 95 Room Air 01/04/22 22:35 01/04/22 22:05 01/04/22 23:15 116/84 95 Room Air 01/04/22 22:01 144/97 H 97 01/04/22 21:15 96 Room Air Diagnostic Findings Telemetry 01/05/22: AFib overnight into this morning, rate average 90-105 EKG 01/04/22: irregularly irregular, no P waves, ventricular rate 141 CMP: Wnl CBC: Hgb 11.1, otherwise wnl Echocardiogram 01/05/22: - LV systolic function wnl - Mild concentric LVH - LA moderately dilated - MV thickened with mild prolapse of posterior leaflet - Moderate to severe MR - RV systolic pressure elevated > 60 mmHg - IVC mildly dilated Medications Administered Cardizem (Diltiazem): ED 5 mg/hr IV, inpatient 30 mg PO q6h PG Care Time/CCT Total # of Minutes Spent Total Time Spent with Patient: Total time spent is greater than 50% in coordination of care (as documented) at patient's floor/unit and/or counseling patient: Coding Level of Care Code INT OBSERVATION CARE 71M LVL 3 Diagnoses Atrial fibrillation with rapid ventricular response I48.91 Mitral regurgitation I34.0 Hypertension I10 Resident Activity Tracking Resident Involvement: Resident Care Provided Care Provided: [facility]
[2022-01-05] MEDS: dilTIAZem HCL 125 MG in DEXTROSE 5% 100 ML IV SCH (10:38)
--- NOTE | 2022-01-05 11:08 | XCELERA ---
[id number]
--- NOTE | 2022-01-05 14:50 | Electrocardiogram Report ---
Test Reason : Blood Pressure : / mmHG Vent. Rate : 141 BPM Atrial Rate : 147 BPM P-R Int : 000 ms QRS Dur : 084 ms QT Int : 272 ms P-R-T Axes : 000 013 049 degrees QTc Int : 416 ms Atrial fibrillation with rapid ventricular response with premature ventricular or aberrantly conducte d complexes Nonspecific ST abnormality Abnormal ECG When compared with ECG of 25-AUG-2015 20:01, Atrial fibrillation has replaced Sinus rhythm Vent. rate has increased BY 69 BPM Nonspecific T wave abnormality now evident in Anterior leads Confirmed by Javi Barrera ([id number]) on 01/05/2022 2:50:11 PM Referred By: Ghazal Alcantar Confirmed By:Quan Barrera
[2022-01-05] MEDS ORDERED: dilTIAZem ER 120 MG CAPCR PO ONE (15:01)
[2022-01-05] MEDS ORDERED: MAGNESIUM SULFATE / D5W 1 GM/100 ML BAG IV ONE ×2 (15:36→15:53)
--- NOTE | 2022-01-05 15:53 | Discharge Summary ---
Date of Service January 05, 2022 Admission HPI Per Admitting Provider Chhaya Bess is a 71-year-old female with past medical history significant for hypertension, anxiety, PAD 5 years ago GERD, and headaches who is presenting today for recommendation of her PCP for new onset A. fib. Patient was at her PCP today for routine checkup when she was incidentally discovered to be in A. fib RVR based on physical exam and EKG. her promptly brought over here for evaluation. Since arrival, she has noted palpitations, but otherwise has been asymptomatic prior to arrival without chest pain, palpitation, shortness of breath, fatigue, presyncope or syncope. She does not have personal history of A. fib or family history that she is aware of. She had recently worked with the [employer] and noticed swelling in both her legs, however this had resolved after being off her feet. She thinks she has been hydrating okay last couple days, but was with her grandchildren this week and physically active than usual. She history of anxiety and high blood pressure, no known cardiac disease. Upon presentation to ED, patient presented with a heart rate of 161, [id number] after Cardizem drip started. Vitals otherwise within normal limits, hemodynamically stable. Labs significant for slight decrease in hemoglobin, 11.7 today, creatinine slightly bumped at 1.03, baseline 0.8. Potassium 4.0, magnesium 1.9. T bili 1.1, without any other LFT abnormalities. Her troponin is 7.3 TSH is 1.463. COVID-negative. Principal Diagnosis Atrial fibrillation, with rapid response, now rate controlled Discharge Exam The patient appeared stable Vital signs as documented. Lungs are clear to auscultation and appear unlabored Cardiac exam, Rhythm is regular.. No murmurs, rubs or gallops. Abdominal exam reveals normal bowel sounds, soft non tender, no masses Extremities are nonedematous and both pedal pulses are normal. Neurologic exam is alert and oriented, no focal loss of strength or sensation Skin is without bruises or rashes Psychologically is without concerns for anxiety or depression. Discharge Data Allergies Allergy/AdvReac Type Severity Reaction Status Date / Time No Known Allergies Allergy Verified 01/04/22 17:52 Consultations 01/04/22 18:22 ED Decision to Admit Stat 01/04/22 21:59 Consult Cardiology Routine Ordered Studies Chest X-Ray 01/04/22 17:25 XR chest 1V portable HISTORY: Dysrhythmia COMPARISON: Chest 08/25/2015. FINDINGS: No pneumothorax. The heart remains mildly enlarged. There is mild central pulmonary vascular congestion without overt edema. There are trace bilateral pleural effusions. No new focal lung consolidations to suggest pneumonia. Calcified granuloma within the right lung base again noted. IMPRESSION: Cardiomegaly with mild central pulmonary vascular congestion and trace bilateral pleural effusions. ACT 112: Negative or not required by law. Electronically signed by: Norman Moore M.D. 01/04/2022 6:19 PM Hospital Course (1) Atrial fibrillation with rapid ventricular response: - New onset today, is unknown patient went into A. fib as she was asymptomatic when was discovered, however as bad palpitations arrival to the ED - Cardiology consult, appreciate their recommendations. Diltiazem 240 mg a day plus eliquis, stop lisinopril - start on Eliquis; per chart review, history of bleeding ulcers ~ 5 years ago, remains on pantoprazole 40 mg daily. (2) DONNA (acute kidney injury): - Cr mildly elevated at 1.03, baseline 0.80. - Hold lisinopril, at discharge , Cr improved (3) Hypertension: - Stop Home regimen lisinopril -> transition to PO Cardizem 240 mg a day (4) Chronic GERD: - With bleeding ulcers 5-6 years ago, asymptomatic since, will still anticoagulate with Eliquis for now and continue protonix, monitor for s/s of GI bleed. (5) Anxiety: - Continue BuSpar 7.5 mg BID, lorazepam 0.5 mg prn. (6) Migraine headache: - History of, has rizatriptan prn for migraines however they have significantly decreased since HTN has been controlled with lisinopril. (7) Solitary pulmonary nodule: - Was [facility], last scan in 2018, at that time nodule remains stable, no further follow-up recommended. Plan - Total Time Total Time Spent Total Time Spent (In Minutes): It required greater than 30 minutes to prepare this patient for discharge Discharge Plan Discharge Items Patient Disposition: Home - Self-Care Reason For Visit: A FIB Discharge Diagnosis: atrial fibrillation with rapid response Activity: Per Instructions section Activity Comment: slowly increase activity Non-emergency contact: Primary Care Provider and Credit Product Analyst Call non-emergency contact if: your symptoms worsen Follow-up/Referrals: Ghazal Alcantar CRNP [Primary Care Provider] - Yeison Goodrich MD [Physician] - Diet: Regular Addtl Attending Provider Instructions: Please limit alcohol and caffeine, please follow up with primary care and eventually cardiology take your medication daily as directed, Diltiazem for heart rate control and eliquis for blood clot prevention Pending Studies at Discharge: No Stand-Alone Forms: [email or web address], Smoking Cessation Medications and DC Order Prescriptions: New Eliquis 5 mg Tablet 5 mg PO BID Qty: 60 5RF diltiazem HCl 240 mg capsule,extended release 24hr 240 mg PO DAILY Qty: 30 4RF Continued lorazepam 0.5 mg tablet 0.5 mg PO DAILY PRN (Reason: anxiety) Qty: 10 1RF Rx Instructions: as needed for panic attacks pantoprazole 40 mg tablet,delayed release (DR/EC) 40 mg PO DAILY Qty: 30 11RF rizatriptan 10 mg tablet 10 mg PO Q2H PRN (Reason: migraine headache) Qty: 30 5RF Rx Instructions: until response; not to exceed 3 doses in a 24 hour period buspirone 7.5 mg tablet 7.5 mg PO BID PRN (Reason: anxiety) Qty: 30 11RF melatonin 5 mg Tablet,Chewable 5 mg PO HS PRN (Reason: Sleep) ogbsvlhs-oohmsx-ajvdhmts acid 500 mg-800 mcg- 50 mg Capsule 1 cap PO DAILY Discontinued lisinopril 20 mg tablet 20 mg PO DAILY Qty: 30 11RF Rx Instructions: pt aware dose change Discharge Orders: Discharge Order (Routine); Ordered 01/05/22 Ordered By: Antoni Tabares Admission Data Admit Date/Time: 01/04/22 19:39 Attending Provider: Antoni Tabares Admit Provider: Charisse George Primary Care Provider: Ghazal Alcantar Other Providers: Clayton Niño ; Yeison Goodrich Coding Level of Care Code D/C DAY MANAGEMENT >30 MINS Diagnoses Atrial fibrillation with rapid ventricular response I48.91 DONNA (acute kidney injury) N17.9 Hypertension I10 Chronic GERD K21.9 Anxiety F41.9 Migraine headache G43.909 Solitary pulmonary nodule R91.1
[2022-01-05] MEDS ORDERED: dilTIAZem HCl 60 MG TAB PO SCH (18:00)
== END 2022-01-05 18:14 | disposition home or self-care (01) | DRG 309 ==
LOC: ED 16:55 → 4W 19:39 → SUATTDRO 19:39 → 4W 21:23

== ENCOUNTER 2022-06-02 04:16 | Inpatient (IN) ==
[2022-06-02] MEDS ORDERED: HYDROmorphone INJ 0.5 MG/0.5 ML SYR IV STA ×2 (04:31→05:55)
[2022-06-02] MEDS ORDERED: ONDANSETRON INJ 2 MG/ML 2 ML VIAL IV STA (04:31)
--- NOTE | 2022-06-02 04:35 | Emergency Department Note ---
History of Present Illness General Chief complaint: Leg Injury/Pain Stated complaint: LEG PAIN Time Seen by Provider: 06/02/22 04:23 History of Present Illness Maximum Pain Intensity: 10 This 71-year-old female that was seen the other day complains of worsening low back pain down the left leg. Patient was given steroids and oxycodone with no relief of symptoms. She was given a muscle relaxant. Patient denies fall, trauma, loss of bowel or bladder control, saddle anesthesia, leg weakness, IV drug abuse. She states the pain is quite severe and is unable to stand up straight. No trauma to the area. Patient is on a DOAC for A. fib. Home Medications Medication Instructions Recorded Confirmed Type pantoprazole 40 mg tablet,delayed 40 mg PO DAILY #30 tabs 06/20/21 05/30/22 Rx release rizatriptan 10 mg tablet 10 mg PO Q2H PRN migraine headache 06/20/21 05/30/22 Rx #30 tabs collagen,hydrolysate 500 mg-biotin 1 cap PO DAILY 01/04/22 05/30/22 History 800 mcg-ascorbic acid 50 mg capsule melatonin 5 mg chewable tablet 5 mg PO HS PRN Sleep 01/04/22 05/30/22 History apixaban 5 mg tablet (Eliquis) 5 mg PO BID #60 tabs 01/31/22 05/30/22 Rx diltiazem HCl 240 mg 240 mg PO DAILY #30 caps 01/31/22 05/30/22 Rx capsule,extended release 24 hr metoprolol succinate 25 mg 25 mg PO DAILY #30 tabs 01/31/22 05/30/22 Rx tablet,extended release 24 hr triamterene 37.5 1 cap PO DAILY PRN edema #30 caps 02/22/22 05/30/22 Rx mg-hydrochlorothiazide 25 mg capsule lorazepam 0.5 mg tablet 0.5 mg PO DAILY PRN anxiety #20 03/23/22 05/30/22 Rx tabs buspirone 7.5 mg tablet 7.5 mg PO BID PRN anxiety #30 tabs 05/28/22 05/30/22 Rx cyclobenzaprine 5 mg tablet 5 mg PO TID PRN muscle spasm #10 05/31/22 Rx tabs oxycodone 5 mg tablet 5 mg PO Q6H PRN pain #10 tabs 05/31/22 Rx prednisone 20 mg tablet 20 mg PO .COMPLEX #30 tabs 05/31/22 Rx Allergies Allergy/AdvReac Type Severity Reaction Status Date / Time No Known Allergies Allergy Verified 05/30/22 13:18 Past Med/Surg History Medical History Achalasia type 1, was followed by [facility], s/p POEM proce done before 2016 Adrenal nodule Anemia Atrial fibrillation Bleeding disorder Esophageal stricture Has had multiple dilations over the last several years. Laceration Lung mass Palpitations Solitary pulmonary nodule Was followed by the [facility], last scan in 2018, at that time nodule remains stable, no further follow-up recommended Surgical History History of elbow surgery Family History Father Gallbladder disease Prostate cancer Sister Lung disease Mother Breast cancer Denies family history of Ovarian cancer Myocardial infarction Colorectal cancer Social History Smoking Status: Former smoker Second Hand Exposure: No; Hx Alcohol Use: Yes Hx Substance Use: No Preferred Language: Mongolian Communication Ability: Effective Visual Impairment: Limited Hearing Ability: Normal Security Director Required: No Beliefs That Will Affect Care: None marital status: Current Living Situation: Spouse current occupational status: employed current occupation: manage a [employer] How many Children do You have: 2 Feels Safe at Home: Yes Childhood Exposure to Second-Hand Smoke: Yes caffeine: Yes during the past year weight has: remained stable Dental Care, Regularly: Yes Physical Activity Frequency: 1-2 Times per Week Seatbelt Use: always Sunscreen Use: Yes Do you think of yourself as: straight/heterosexual Gender Identity: Female Assistive Devices: None Review of Systems A total of 10 systems reviewed and were otherwise negative Physical Exam Vital Signs Vital Signs - 24 hr 06/02/22 04:19 06/02/22 06:00 Temperature 36.7 C Temperature Source Oral Pulse Rate 110 H Pulse Rate [Apical] 111 H Respiratory Rate 18 14 Blood Pressure 140/93 Blood Pressure [Right Arm] 132/94 Blood Pressure Mean 108 Blood Pressure Mean [Right Arm] 106 Pulse Oximetry 97 96 Oxygen Delivery Method Room Air Room Air Sepsis Recent Fever Within 48 Hours No Sepsis New/Unexplained Change in Mental Status No Sepsis Action Taken by Nursing No Action Required VITALS: Vitals are noted on the nurse's note and reviewed by myself. Vital signs stable. GENERAL: Pleasant female who appears in pain, in no acute distress, nondiaphoretic, well-developed well-nourished. SKIN: The skin was without rashes, erythema, edema, or bruising. There is no tenting of the skin. Capillary reflex less than 2 seconds. HEAD: Normocephalic atraumatic. EARS: External auditory canals clear, EYES: Pupils equal round and reactive to light and accommodation. Conjunctivae without injection, sclerae without icterus. Extraocular movements intact. NOSE: Patent, turbinates without inflammation or discharge. MOUTH: Mucous membranes moist. Pharynx without erythema or exudate. Uvula midline. Airway patent. Tongue does not deviate. NECK: Supple without nuchal rigidity. No lymphadenopathy. No thyromegaly. Cervical spine is nontender. No JVD. HEART: Regular rate and rhythm LUNGS: Clear to auscultation bilaterally without wheezes, rales or rhonchi. No retractions or accessory muscle use. ABDOMEN: Positive bowel sounds x 4. Normal tympanic percussion. Soft, nontender, without masses or organomegaly. Goss sign negative. No guarding or rebound tenderness. No CVA tenderness MUSCULOSKELETAL: No muscle atrophy, erythema, or edema noted. No lumbar tenderness. Positive straight leg raise on the left. Negative on the right. 5-5 strength throughout. NEURO: Patient was alert and oriented to person place and time. Normal sensation to light and sharp touch. No focal neurological deficits. Course Administered Medications Discontinued Medications Hydromorphone HCl (Hydromorphone Inj 0.5 Mg/0.5 Ml Syr) 0.25 mg IV NOW STA Stop: 06/02/22 04:32 Last Admin: 06/02/22 04:45 Dose: 0.25 mg Documented By: BRANDY Hydromorphone HCl (Hydromorphone Inj 0.5 Mg/0.5 Ml Syr) 0.25 mg IV NOW STA Stop: 06/02/22 05:56 Last Admin: 06/02/22 06:07 Dose: 0.25 mg Documented By: BRANDY Acetaminophen (Ofirmev) 1,000 mg in 100 mls @ 400 mls/hr IV NOW STA Stop: 06/02/22 05:30 Last Infusion: 06/02/22 05:33 Dose: 0 mls/hr Documented By: Admin: 06/02/22 05:19 Dose: 400 mls/hr Documented By: BRANDY Ketorolac Tromethamine (Ketorolac Tromethamine 15 Mg/Ml Vial) 10 mg IV NOW STA Stop: 06/02/22 05:17 Last Admin: 06/02/22 05:19 Dose: 10 mg Documented By: BRANDY Ondansetron HCl (Ondansetron Inj 2 Mg/Ml 2 Ml Vial) 4 mg IV NOW STA Stop: 06/02/22 04:32 Last Admin: 06/02/22 04:45 Dose: 4 mg Documented By: BRANDY Medical Decision Making Medical Records Attestation: I reviewed the patient's medical records. Home Medications Current Medication List: was personally reviewed by me Laboratory Data Attestation: I reviewed the patient's lab results. 06/02/22 04:35 06/02/22 04:35 Lab Results 06/02/22 06/02/22 06/02/22 Range/Units 04:35 04:35 05:19 WBC 16.05 H (4.8-10.8) K/ul RBC 4.14 L (4.20-5.40) M/uL Hgb 13.2 (12.0-16.0) g/dl Hct 39.5 (37.0-47.0) % MCV 95.4 (80.0-100.0) fL MCH 31.9 (25.0-34.0) pg MCHC 33.4 (32.0-36.0) g/dL RDW Std Deviation 49.4 H (36.4-46.3) fL RDW Coeff of Alfonzo 14.2 (11.5-14.5) % Plt Count 304 (130-400) K/uL MPV 9.5 (9.4-12.4) fL Immature Gran % (Auto) 0.6 % Neut % (Auto) 76.7 % Lymph % (Auto) 12.5 % [place] % (Auto) 10.0 % Eos % (Auto) 0.1 % Baso % (Auto) 0.1 % Neut # (Auto) 12.32 H (1.40-6.50) K/uL Lymph # (Auto) 2.01 (1.2-3.4) K/uL [place] # (Auto) 1.60 H (0.11-0.59) K/uL Eos # (Auto) 0.01 (0-0.50) K/uL Baso # (Auto) 0.02 (0-0.2) K/uL Immature Gran # (Auto) 0.09 (0.01-0.20) K/uL Sodium 133 L (136-145) mmol/L Potassium TNP 3.9 Chloride 97 L (98-107) mmol/L Carbon Dioxide 28 (21-32) mmol/L Anion Gap 8 (3-11) BUN 25 H (6-23) mg/dl Creatinine 1.07 (0.6-1.2) mg/dl Est Cr Clr Drug Dosing 45.8 ml/min Est GFR ( Amer) 60.9 ml/min Est GFR (Non-Af Amer) 52.6 ml/min BUN/Creatinine Ratio 23.4 H (10-20) Glucose 115 H (70-99(Fasting)) mg/dl Calcium 9.7 (8.5-10.1) mg/dl Total Bilirubin 0.7 (0.2-1.0) mg/dl AST TNP 19 ALT 21 (7-52) U/L Alkaline Phosphatase 69 (34-104) U/L Total Protein 6.8 (6.0-8.3) gm/dl Albumin 4.3 (3.4-5.0) gm/dl Globulin 2.5 (2.5-4.0) gm/dl Albumin/Globulin Ratio 1.7 (0.9-2) Imaging Data Attestation: I personally reviewed and interpreted this imaging study as follows: MDM Narrative Prior records/ancillary studies reviewed. Triage Nursing notes reviewed. Additional history obtained from family. The patient's history was concerning for back pain. Differential diagnosis: Etiologies such as musculoskeletal, disc herniation, fracture, aortic disease, metastatic disease, cord compression, discitis, infection, renal colic, gastrointestinal, acute exacerbation of chronic back pain, sciatica, cauda equina, as well as others were entertained. Physical findings: As above. No focal neurologic findings noted. ER treatment provided: Dilaudid, Zofran On reassessment the patient felt better. Diagnostics interpreted by me: The labs Independently Interpreted by myself revealed leukocytosis most likely from steroid use Mild hyperglycemia most likely secondary to steroid use Imaging studies: CT L SPINE: No acute fracture. Minimal spondylosis. Posterior disc bulges at multiple levels. Minimal left neural foraminal stenosis L3-L4. No substantial canal stenosis. Colonic diverticulosis. Small bilateral renal stones. Gastroesophageal reflux. Coarse calcifications right adrenal gland. Radiologist: Melanie Joiner MD Consultation: A consultation was placed with hospitalist. The case was discussed and diagnostics were reviewed. Patient will be evaluated for possible admission. This appears to be consistent with intractable low back pain. Patient was given multiple rounds of pain meds. She was still moderate to severe amount of pain. Medicine was consulted and the case was discussed. She will be admitted to the medical service for intractable low back pain. Labs and diagnostics were ind ependently interpreted by myself. Radiology did read the CAT scans. Patient was still moderate amount of distress but had no deficits on exam. She was neurovascular neurologically intact. She is agreeable treatment plan to be evaluated by the hospitalist for possible admission. By the evaluation outlined above emergent etiologies such as fracture, aortic disease, metastatic disease, infection, renal colic, gastrointestinal, cord compression, cauda equina, as well as others were deemed relatively unlikely. The pt informed about the findings as listed above. All questions were answered and pleased with the treatment. The chart was completed utilizing [employer] Speech voice recognition software. Grammatical errors, random word insertions, pronoun errors, and incomplete sentences are an occassional consequence of this system due to software limitations, ambient noise, and hardware issues. Any formal questions or concerns about the content, text, or information contained within the body of this dictation should be directly addressed to the physician bookkeeping assistant for clarification. Impression & Plan Acute lumbar radiculopathy, Intractable low back pain Discharge Plan Visit Data Chief Complaint: Leg Injury/Pain Stated Complaint: LEG PAIN ED Provider: Javier Jimenez ED Midlevel Provider: Anne Marie Sawant Discharge Problem: Acute lumbar radiculopathy, Intractable low back pain Patient Disposition: Being Evaluated by Hospitalist Condition: Good Forms Stand Alone Forms: My [employer] Prescriptions Prescriptions: No Action triamterene-hydrochlorothiazid 37.5-25 mg capsule 1 cap PO DAILY PRN (Reason: edema) Qty: 30 5RF lorazepam 0.5 mg tablet 0.5 mg PO DAILY PRN (Reason: anxiety) Qty: 20 1RF Rx Instructions: as needed for panic attacks buspirone 7.5 mg tablet 7.5 mg PO BID PRN (Reason: anxiety) Qty: 30 11RF prednisone 20 mg tablet 20 mg PO .COMPLEX Qty: 30 0RF Rx Instructions: 20 mg orally 3 tab for 5 days, 2 tab for 5 days, 1 tab for 5 days; diltiazem HCl 240 mg capsule,extended release 24hr 240 mg PO DAILY Qty: 30 11RF metoprolol succinate 25 mg tablet extended release 24 hr 25 mg PO DAILY Qty: 30 11RF Eliquis 5 mg tablet 5 mg PO BID Qty: 60 11RF pantoprazole 40 mg tablet,delayed release (DR/EC) 40 mg PO DAILY Qty: 30 11RF rizatriptan 10 mg tablet 10 mg PO Q2H PRN (Reason: migraine headache) Qty: 30 5RF Rx Instructions: until response; not to exceed 3 doses in a 24 hour period melatonin 5 mg Tablet,Chewable 5 mg PO HS PRN (Reason: Sleep) niblfere-nndybz-ehtphkro acid 500 mg-800 mcg- 50 mg Capsule 1 cap PO DAILY oxycodone 5 mg tablet 5 mg PO Q6H PRN (Reason: pain) Qty: 10 0RF Rx Instructions: Initial Treatment cyclobenzaprine 5 mg tablet 5 mg PO TID PRN (Reason: muscle spasm) Qty: 10 0RF Referrals Referrals: Ghazal Alcantar CRNP [Primary Care Provider] -
[2022-06-02 04:51] LABS: Basophils # (auto) 0.02 K/uL (0-0.2); Basophils % (auto) 0.1 %; Eosinophils # (auto) 0.01 K/uL (0-0.50); Eosinophils % (auto) 0.1 %; Hematocrit (blood only) 39.5 % (37.0-47.0); Hemoglobin 13.2 g/dl (12.0-16.0); Immature Granulocytes # (auto) 0.09 K/uL (0.01-0.20); Immature Granulocytes % (auto) 0.6 %; Lymphocytes # (auto) 2.01 K/uL (1.2-3.4); Lymphocytes % (auto) 12.5 %; Mean Corpuscular Hemoglobin 31.9 pg (25.0-34.0); Mean Corpuscular Hgb Conc 33.4 g/dL (32.0-36.0); Mean Corpuscular Volume 95.4 fL (80.0-100.0); Mean Platelet Volume 9.5 fL (9.4-12.4); Neutrophils # (auto) 12.32 K/uL (1.40-6.50); Neutrophils % (auto) 76.7 %; Platelet Count 304 K/uL (130-400); RDW Coefficient of Variation 14.2 % (11.5-14.5); RDW Standard Deviation 49.4 fL (36.4-46.3); Red Blood Count 4.14 M/uL (4.20-5.40); White Blood Count 16.05 K/ul (4.8-10.8)
[2022-06-02 05:13] LABS: Alanine Aminotransferase 21 U/L (7-52); Albumin Globulin Ratio 1.7 (0.9-2); Albumin Level 4.3 gm/dl (3.4-5.0); Alkaline Phosphatase 69 U/L (34-104); Anion Gap 8 (3-11); BUN Creatinine Ratio 23.4 (10-20); Bilirubin,Total 0.7 mg/dl (0.2-1.0); Blood Urea Nitrogen 25 mg/dl (6-23); Calcium 9.7 mg/dl (8.5-10.1); Carbon Dioxide 28 mmol/L (21-32); Chloride 97 mmol/L (98-107); Creatinine Clr Calc Pharmacy 45.8 ml/min; Est GFR (African American) 60.9 ml/min; Est GFR (Non-African American) 52.6 ml/min; Globulin 2.5 gm/dl (2.5-4.0); Glucose 115 mg/dl (70-99(Fasting)); Sodium 133 mmol/L (136-145); Total Protein 6.8 gm/dl (6.0-8.3)
[2022-06-02] MEDS ORDERED: ACETAMINOPHEN 1,000 MG/100 ML VIAL IV STA (05:16)
[2022-06-02] MEDS ORDERED: KETOROLAC TROMETHAMINE 15 MG/ML VIAL IV STA (05:16)
[2022-06-02 05:59] LABS: Potassium 3.9 mmol/L (3.5-5.1)
[2022-06-02] MEDS ORDERED: fentaNYL citrate 100 MCG/2 ML VIAL IV ONE (06:24)
--- NOTE | 2022-06-02 07:14 | History & Physical Report ---
Date of Service June 02, 2022 Assessment & Plan (1) Acute lumbar radiculopathy: Plan: Patient with acute onset lumbar pain with left sided radiculopathy. CT of the back with disc bulges at multiple levels. She has been taking steroids, Flexeril and oxycodone at home with minimal improvement. Patient did have similar pain in the past in January 2022 - she ran into a burt-totter at a playground and struck her left anterior thigh. She had significant pain in the right thigh, left hip and posterior leg. She was treated with steroids and improved. -Admit to medical -Tylenol 1000mg po TID -Heat to back -Continue Flexeril -Lidoderm patch -Morphine PRN -Bowel regimen as needed -PT/OT evaluation (2) Hypertension: Plan: Blood pressure well controlled at present -Continue Diltiazem and Metoprolol -Continue Triamterene/HCTZ (3) Chronic GERD: Plan: Chronic -Continue Protonix daily (4) Atrial fibrillation: Plan: HR = 111 at present -Continue Diltiazem 240mg po daily -Continue metoprolol -Continue Apixaban (5) Adrenal nodule: Plan: Noted on imaging from 2018 - nodular thickening and partially calcified right adrenal gland. (6) Anxiety: Plan: Chronic. -Continue Buspirone and Lorazepam PRN History of Present Illness Chief Complaint: back pain Primary Care Provider: MENA Chavarria Chhaya Araujo is a 71yo female with history of atrial fibrillation on Apixaban anticoagulation presenting with back pain with radiation into the left anterior thigh. Patient reports going to bed in her usual state of health on 05/30/22. When she woke in the morning of 05/31/22 she had significant pain in her back. Her pain has progressed, radiates into her left anterior thigh. She denies numbness, tingling or weakness. Is having a difficult time ambulating due to pain. Discomfort is relieved slighty with flexion at the waist. No fall, no trauma. No history of prior. She was prescribed prednisone by her PCP on 05/30/22 and has been taking it with no improvement. She was seen in the ER on 05/31/22 with these complaints and was given Dexamethasone 10mg IV, Morphine 4mg IV, Zofran 4mg IV and discharged home on Oxycodone. Xray of the lumbar spine without fracture. In the ER she was given Fentanyl 25mcg, Dilaudid 0.25mg x 2, Tylenol 1000mg, Toradol 10mg and Zofran 4mg Still with pain Allergies Allergy/AdvReac Type Severity Reaction Status Date / Time No Known Allergies Allergy Verified 05/30/22 13:18 Home Medications Medication Instructions Recorded Confirmed Type pantoprazole 40 mg tablet,delayed 40 mg PO DAILY #30 tabs 06/20/21 05/30/22 Rx release rizatriptan 10 mg tablet 10 mg PO Q2H PRN migraine headache 06/20/21 05/30/22 Rx #30 tabs collagen,hydrolysate 500 mg-biotin 1 cap PO DAILY 01/04/22 05/30/22 History 800 mcg-ascorbic acid 50 mg capsule melatonin 5 mg chewable tablet 5 mg PO HS PRN Sleep 01/04/22 05/30/22 History apixaban 5 mg tablet (Eliquis) 5 mg PO BID #60 tabs 01/31/22 05/30/22 Rx diltiazem HCl 240 mg 240 mg PO DAILY #30 caps 01/31/22 05/30/22 Rx capsule,extended release 24 hr metoprolol succinate 25 mg 25 mg PO DAILY #30 tabs 01/31/22 05/30/22 Rx tablet,extended release 24 hr triamterene 37.5 1 cap PO DAILY PRN edema #30 caps 02/22/22 05/30/22 Rx mg-hydrochlorothiazide 25 mg capsule lorazepam 0.5 mg tablet 0.5 mg PO DAILY PRN anxiety #20 03/23/22 05/30/22 Rx tabs buspirone 7.5 mg tablet 7.5 mg PO BID PRN anxiety #30 tabs 05/28/22 05/30/22 Rx cyclobenzaprine 5 mg tablet 5 mg PO TID PRN muscle spasm #10 05/31/22 Rx tabs oxycodone 5 mg tablet 5 mg PO Q6H PRN pain #10 tabs 05/31/22 Rx prednisone 20 mg tablet 20 mg PO .COMPLEX #30 tabs 05/31/22 Rx Past Med/Surg History Medical History (Updated 06/02/22 @ 07:03 by Elvira Fisher DO) Achalasia type 1, was followed by [facility], s/p POEM proce done before 2016 Adrenal nodule Anemia Atrial fibrillation Bleeding disorder Esophageal stricture Has had multiple dilations over the last several years. Laceration Lung mass Palpitations Solitary pulmonary nodule [facility], last scan in 2018, at that time nodule remains stable, no further follow-up recommended Surgical History History of elbow surgery Family History Father Gallbladder disease Prostate cancer Sister Lung disease Mother Breast cancer Denies family history of Ovarian cancer Myocardial infarction Colorectal cancer Social History Smoking Status: Former smoker Second Hand Exposure: No; Hx Alcohol Use: Yes Hx Substance Use: No Preferred Language: Welsh Communication Ability: Effective Visual Impairment: Limited Hearing Ability: Normal Coverstitch Binder Required: No Beliefs That Will Affect Care: None marital status: Current Living Situation: Spouse current occupational status: employed current occupation: manage a [employer] How many Children do You have: 2 Feels Safe at Home: Yes Childhood Exposure to Second-Hand Smoke: Yes caffeine: Yes during the past year weight has: remained stable Dental Care, Regularly: Yes Physical Activity Frequency: 1-2 Times per Week Seatbelt Use: always Sunscreen Use: Yes Do you think of yourself as: straight/heterosexual Gender Identity: Female Assistive Devices: None Review of Systems Review of Systems: All systems reviewed & are unremarkable except as noted in HPI & below Physical Exam Physical Exam: General: patient appears uncomfortable, in mild distress secondary to pain, non-toxic in appearance, AA&O x 4 Skin: warm, dry, intact, no rashes or lesions HEENT: NC/AT, PERRL, EOMI, anicteric sclera, conjunctiva without injection, external ear normal to inspection and nontender, nares patent, moist mucus membranes, dentition intact, no oropharyngeal lesions, neck supple, trachea midline, no LAD, no thyromegaly, no JVD Heart: +S1/S2, irregularly irregular, no m/r/g Lungs: equal air entry bilaterally, no rales/rhonchi/wheezes Abd: +BS, soft, NT/ND, no masses/organomegaly/ascites Ext: warm, 2+ pulses in UE/LE bilaterally, no clubbing/cyanosis or edema Neuro: nonfocal, patient AA&O x 4, speech intact, no facial droop, moving all extremities on command with equal strength 5/5 Nontender over lumbar vertebrae. Tenderness with palpation of anterior left thigh Results & Data Results & Data ([facility]) Vital Signs (Past 12 Hours) Vital Signs Temp Pulse Pulse Resp BP BP Pulse Ox 06/02/22 06:00 111 H 14 132/94 96 06/02/22 04:19 36.7 C 110 H 18 140/93 97 O2 Del Method 06/02/22 06:00 Room Air 06/02/22 04:19 Room Air Laboratory Results Laboratory Results WBC 16.05 K/ul (4.8-10.8) H 06/02/22 04:35 RBC 4.14 M/uL (4.20-5.40) L 06/02/22 04:35 Hgb 13.2 g/dl (12.0-16.0) 06/02/22 04:35 Hct 39.5 % (37.0-47.0) 06/02/22 04:35 MCV 95.4 fL (80.0-100.0) 06/02/22 04:35 MCH 31.9 pg (25.0-34.0) 06/02/22 04:35 MCHC 33.4 g/dL (32.0-36.0) 06/02/22 04:35 RDW Std Deviation 49.4 fL (36.4-46.3) H 06/02/22 04:35 RDW Coeff of Alfonzo 14.2 % (11.5-14.5) 06/02/22 04:35 Plt Count 304 K/uL (130-400) 06/02/22 04:35 MPV 9.5 fL (9.4-12.4) 06/02/22 04:35 Immature Gran % (Auto) 0.6 % 06/02/22 04:35 Neut % (Auto) 76.7 % 06/02/22 04:35 Lymph % (Auto) 12.5 % 06/02/22 04:35 [place] % (Auto) 10.0 % 06/02/22 04:35 Eos % (Auto) 0.1 % 06/02/22 04:35 Baso % (Auto) 0.1 % 06/02/22 04:35 Neut # (Auto) 12.32 K/uL (1.40-6.50) H 06/02/22 04:35 Lymph # (Auto) 2.01 K/uL (1.2-3.4) 06/02/22 04:35 [place] # (Auto) 1.60 K/uL (0.11-0.59) H 06/02/22 04:35 Eos # (Auto) 0.01 K/uL (0-0.50) 06/02/22 04:35 Baso # (Auto) 0.02 K/uL (0-0.2) 06/02/22 04:35 Immature Gran # (Auto) 0.09 K/uL (0.01-0.20) 06/02/22 04:35 Sodium 133 mmol/L (136-145) L 06/02/22 04:35 Potassium 3.9 mmol/L (3.5-5.1) 06/02/22 05:19 Chloride 97 mmol/L (98-107) L 06/02/22 04:35 Carbon Dioxide 28 mmol/L (21-32) 06/02/22 04:35 Anion Gap 8 (3-11) 06/02/22 04:35 BUN 25 mg/dl (6-23) H 06/02/22 04:35 Creatinine 1.07 mg/dl (0.6-1.2) 06/02/22 04:35 Est Cr Clr Drug Dosing 45.8 ml/min 06/02/22 04:35 Est GFR ( Amer) 60.9 ml/min 06/02/22 04:35 Est GFR (Non-Af Amer) 52.6 ml/min 06/02/22 04:35 BUN/Creatinine Ratio 23.4 (10-20) H 06/02/22 04:35 Glucose 115 mg/dl (70-99(Fasting)) H 06/02/22 04:35 Calcium 9.7 mg/dl (8.5-10.1) 06/02/22 04:35 Total Bilirubin 0.7 mg/dl (0.2-1.0) 06/02/22 04:35 AST 19 U/L (13-39) 06/02/22 05:19 ALT 21 U/L (7-52) 06/02/22 04:35 Alkaline Phosphatase 69 U/L (34-104) 06/02/22 04:35 Total Protein 6.8 gm/dl (6.0-8.3) 06/02/22 04:35 Albumin 4.3 gm/dl (3.4-5.0) 06/02/22 04:35 Globulin 2.5 gm/dl (2.5-4.0) 06/02/22 04:35 Albumin/Globulin Ratio 1.7 (0.9-2) 06/02/22 04:35 SARS-CoV-2, RNA, NAAT NEGATIVE (NEGATIVE) 06/02/22 06:[address] of the L spine - no acut fracture. minimal spondylosis. posterior disc bulges at multiple levels. minimal left neural foraminal stenosis at L3-4. No substantial canal stenosis. Colonic diverticulosis. Small bilateral renal stones. Gastroesophageal reflux. Coarse calcifications in right adrenal gland PG Care Time/CCT Total # of Minutes Spent Total Time Spent with Patient: Total time spent is greater than 50% in coordination of care (as documented) at patient's floor/unit and/or counseling patient: Coding Level of Care Code 70888 INT INP/OBS CARE 2MIN Diagnoses Acute lumbar radiculopathy M54.16 Hypertension I10 Chronic GERD K21.9 Atrial fibrillation I48.91 Adrenal nodule E27.9 Anxiety F41.9
--- NOTE | 2022-06-02 07:34 | CT Scan Report ---
LUMBAR SPINE CT CT DOSE: 829.02 mGy.cm HISTORY: severe pain down left leg TECHNIQUE: Multiaxial CT images of the lumbar spine were performed and reformatted in the sagittal an d coronal plane without the use of contrast. A dose lowering technique was utilized adhering to the principles of ALARA. COMPARISON: Chest CT 09/23/2017. FINDINGS: No fracture or subluxation. Moderate disc space narrowing at L5-S1. The sacrum is intact. N o high-grade central canal stenosis by CT technique. There are punctate bilateral renal calculi. Coar se calcifications noted within the adrenal gland. No change in the dilated esophagus with a thickened wall. IMPRESSION: No fractures within the lumbar spine. ACT 112: Negative or not required by law. Electronically signed by: Norman Moore M.D. 06/02/2022 7:33 AM
[2022-06-02] MEDS ORDERED: DOCUSATE SODIUM/SENNA 50/8.6MG TAB PO PRN (08:42)
[2022-06-02] MEDS ORDERED: busPIRone 7.5 MG TAB PO PRN (08:42)
[2022-06-02] MEDS ORDERED: MoRPHine SULFATE 4 MG/ML 1 ML CARP\\VIAL IV PRN (08:42)
[2022-06-02] MEDS ORDERED: LORazepam 0.5 MG TAB PO PRN (08:42)
[2022-06-02] MEDS ORDERED: POLYETHYLENE (MIRALAX) 17 GM PACK PO PRN (08:42)
[2022-06-02] MEDS ORDERED: MoRPHine SULFATE 2 MG/ML CARP IV PRN (08:42)
[2022-06-02] MEDS ORDERED: PANTOprazole 40 MG TAB PO SCH (09:00)
[2022-06-02] MEDS: CYCLOBENZAPRINE HCL 5 MG TAB PO PRN (09:22)
[2022-06-02] MEDS: APIXABAN 5 MG TABLET PO SCH ×2 (09:26→20:12)
[2022-06-02] MEDS: METOPROLOL SUCC 25MG EXT REL TAB PO SCH (09:27)
[2022-06-02] MEDS: dilTIAZem HCL 240 MG CAPCR PO SCH (09:27)
[2022-06-02] MEDS: LIDOCAINE 5% 1 PATCH TD SCH (09:29)
[2022-06-02] MEDS: ACETAMINOPHEN 500 MG TAB PO SCH ×2 (13:28→20:11)
[2022-06-02] MEDS ORDERED: KETOROLAC TROMETHAMINE 15 MG/ML VIAL IM STA (14:24)
[2022-06-02] MEDS ORDERED: KETOROLAC TROMETHAMINE 15 MG/ML VIAL IV ONE (14:43)
[2022-06-02] MEDS: ONDANSETRON INJ 2 MG/ML 2 ML VIAL IV SCH ×2 (14:46→20:10)
[2022-06-02] MEDS: dexAMETHasone 6 MG in SYRINGE 0 ML IV SCH (15:08)
[2022-06-02] MEDS: HYDROmorphone INJ 2 MG/ML SYR/VIAL IV PRN ×2 (16:02→21:40)
[2022-06-02] MEDS: PANTOprazole 40 MG in SYRINGE 0 ML IV SCH (20:11)
[2022-06-03] MEDS ORDERED: KETOROLAC TROMETHAMINE 15 MG/ML VIAL IV ONE (01:15)
[2022-06-03] MEDS: ONDANSETRON INJ 2 MG/ML 2 ML VIAL IV SCH ×4 (01:29→20:15)
[2022-06-03] MEDS: HYDROmorphone INJ 2 MG/ML SYR/VIAL IV PRN ×3 (06:05→18:46)
[2022-06-03] MEDS: LIDOCAINE 5% 1 PATCH TD SCH (07:41)
[2022-06-03] MEDS: dilTIAZem HCL 240 MG CAPCR PO SCH (07:42)
[2022-06-03] MEDS: APIXABAN 5 MG TABLET PO SCH ×2 (07:43→20:15)
[2022-06-03] MEDS: PANTOprazole 40 MG in SYRINGE 0 ML IV SCH ×2 (07:43→20:15)
[2022-06-03] MEDS: METOPROLOL SUCC 25MG EXT REL TAB PO SCH (07:43)
[2022-06-03] MEDS: TRIAMTERENE/HCTZ 37.5/25MG CAP PO SCH (07:43)
[2022-06-03] MEDS: ACETAMINOPHEN 500 MG TAB PO SCH ×3 (07:43→20:15)
[2022-06-03] MEDS: dexAMETHasone 6 MG in SYRINGE 0 ML IV SCH (13:57)
--- NOTE | 2022-06-03 19:20 | Hospitalist Progress Note ---
Date of Service June 03, 2022 Assessment & Plan (1) Acute lumbar radiculopathy: Plan: Patient with acute onset lumbar pain with left sided radiculopathy. CT of the back with disc bulges at multiple levels. She has been taking steroids, Flexeril and oxycodone at home with minimal improvement. Patient did have similar pain in the past in January 2022 - she ran into a burt-totter at a playground and struck her left anterior thigh. She had significant pain in the right thigh, left hip and posterior leg. She was treated with steroids and improved. -Admit to medical -Tylenol 1000mg po TID -Heat to back -Continue Flexeril -Lidoderm patch -Morphine PRN -PT/OT evaluation 06/03-patient has slight improvement in her low back as well as radiculopathy with initiation of IV steroids and IV Dilaudid Pain management consultation placed We will defer spine surgery consultation to a.m. team Bowel regimen to prevent constipation started PT OT eval placed (2) Hypertension: Plan: Blood pressure well controlled at present -Continue Diltiazem and Metoprolol -Continue Triamterene/HCTZ (3) Chronic GERD: Plan: Chronic -Continue Protonix daily (4) Atrial fibrillation: Plan: HR = 111 at present -Continue Diltiazem 240mg po daily -Continue metoprolol -Continue Apixaban (5) Adrenal nodule: Plan: Noted on imaging from 2018 - nodular thickening and partially calcified right adrenal gland. (6) Anxiety: Plan: Chronic. -Continue Buspirone and Lorazepam PRN Admission and Anticipated Discharge Date Admission Date: June 02, 2022 Subjective Patient is slight improvement in her low back as well as her left thigh pain with IV Dilaudid regimen Along with IV steroids Bowel regimen started as well Patient still apprehensive about her pain symptoms returning Physical Exam Physical Exam: Head and ENT no thyroid enlargement trachea midline Cardiovascular S1-S2 are normal no S3 Lungs bilateral air entry fair no wheezing Abdomen soft nondistended positive bowel sounds no rebound tenderness Extremity shows trace edema Neurologically no focal deficits noted Skin shows no rash no cyanosis Results & Data Results & Data ([facility]) Vital Signs (Past 12 Hours) Vital Signs Temp Pulse Resp BP Pulse Ox O2 Del Method 06/03/22 15:07 36.5 C 93 H 16 124/84 98 Room Air 06/03/22 15:05 36.5 C 66 16 103/67 98 Room Air PG Care Time/CCT Total # of Minutes Spent Total Time Spent with Patient: Total time spent is greater than 50% in coordination of care (as documented) at patient's floor/unit and/or counseling patient: Coding Level of Care Code 49391 SUB INP/OBS CARE 2/35MIN Diagnoses Acute lumbar radiculopathy M54.16 Hypertension I10 Chronic GERD K21.9 Atrial fibrillation I48.91 Adrenal nodule E27.9 Anxiety F41.9
[2022-06-03] MEDS: DOCUSATE SODIUM 100 MG CAP PO SCH (20:16)
[2022-06-03] MEDS: CYCLOBENZAPRINE HCL 5 MG TAB PO PRN (20:16)
[2022-06-03] MEDS: LACTULOSE SYRUP 30 GM/45 ML UDP PO SCH (20:19)
[2022-06-04] MEDS: HYDROmorphone INJ 2 MG/ML SYR/VIAL IV PRN ×3 (00:34→19:10)
[2022-06-04] MEDS: ONDANSETRON INJ 2 MG/ML 2 ML VIAL IV SCH ×4 (02:40→19:14)
[2022-06-04] MEDS: CYCLOBENZAPRINE HCL 5 MG TAB PO PRN (04:59)
[2022-06-04] MEDS ORDERED: HYDROmorphone INJ 1 MG/ML SYRINGE IV STA (05:09)
[2022-06-04 06:37] LABS: Hematocrit (blood only) 38.5 % (37.0-47.0); Mean Corpuscular Hemoglobin 31.8 pg (25.0-34.0); Mean Corpuscular Hgb Conc 33.8 g/dL (32.0-36.0); Mean Corpuscular Volume 94.1 fL (80.0-100.0); Mean Platelet Volume 9.3 fL (9.4-12.4); Platelet Count 296 K/uL (130-400); RDW Coefficient of Variation 13.7 % (11.5-14.5); RDW Standard Deviation 47.4 fL (36.4-46.3); Red Blood Count 4.09 M/uL (4.20-5.40); White Blood Count 9.32 K/ul (4.8-10.8)
[2022-06-04 06:46] LABS: Calcium 9.6 mg/dl (8.5-10.1); Potassium 4.3 mmol/L (3.5-5.1)
[2022-06-04 06:52] LABS: Creatinine Clr Calc Pharmacy 41.5 ml/min; Est GFR (African American) 54.1 ml/min; Est GFR (Non-African American) 46.7 ml/min
[2022-06-04] MEDS: dilTIAZem HCL 240 MG CAPCR PO SCH (08:07)
[2022-06-04] MEDS: LIDOCAINE 5% 1 PATCH TD SCH (08:07)
[2022-06-04] MEDS: DOCUSATE SODIUM 100 MG CAP PO SCH ×2 (08:07→19:13)
[2022-06-04] MEDS: APIXABAN 5 MG TABLET PO SCH (08:07)
[2022-06-04] MEDS: ACETAMINOPHEN 500 MG TAB PO SCH ×3 (08:07→19:15)
[2022-06-04] MEDS: TRIAMTERENE/HCTZ 37.5/25MG CAP PO SCH (08:07)
[2022-06-04] MEDS: METOPROLOL SUCC 25MG EXT REL TAB PO SCH (08:07)
[2022-06-04] MEDS: PANTOprazole 40 MG in SYRINGE 0 ML IV SCH ×2 (08:08→19:14)
[2022-06-04] MEDS: LACTULOSE SYRUP 30 GM/45 ML UDP PO SCH ×2 (08:08→19:14)
--- NOTE | 2022-06-04 08:21 | Hospitalist Progress Note ---
Date of Service June 04, 2022 Assessment & Plan (1) Acute lumbar radiculopathy: Plan: Patient with acute onset lumbar pain with left sided radiculopathy. Patient states this first began in January after running into a burt totter while playing with her granddaughter. She was treated with prednisone and PT and the pain completely resolved until last week. She states Saturday she went to bed fine and woke up Saturday with some mild left thigh pain that progressed. She states she had relief with being bent over. She saw her PCP and was rx some prednisone without any relief. CT of the back with disc bulges at multiple levels. She has been taking steroids, Flexeril and oxycodone at home with minimal improvement. -Admitted to medical -Tylenol 1000mg po TID -Heat to back -Continue Flexeril TID as needed -Lidoderm patch -Dilaudid 2mg IV q6h as needed -PT/OT evaluation 06/03-patient has slight improvement in her low back as well as radiculopathy with initiation of IV steroids and IV Dilaudid Pain management consultation placed Bowel regimen to prevent constipation started PT OT eval placed 06/04/22- Consult placed with Dr Clemens (orthopedic spine surgeon) MRI ordered (Ativan 1mg IV and dilaudid 2mg IV prior to MRI) Eliquis held for possible injection vs discectomy with Dr Clemens Encouraged to continue to get up and OOB Apply SCDs when in bed (2) Hypertension: Plan: Blood pressure well controlled at present 124/87 -Continue Diltiazem and Metoprolol -Continue Triamterene/HCTZ (3) Chronic GERD: Plan: Chronic GERD, Achalasia /esophageal stricture -Continue Protonix daily -Thickened dilated esophagus on CT imaging (patient has hx of achalasia and follows with GI) Discussed outpatient GI follow up (4) Atrial fibrillation: Plan: HR is 84 at present -Continue Diltiazem 240mg po daily -Continue metoprolol 25mg daily Eliquis was given this AM and then held due to possible surgery with Dr Clemens awaiting MRI (5) Adrenal nodule: Plan: Noted on imaging from 2018 - nodular thickening and partially calcified right adrenal gland. (6) Anxiety: Plan: Chronic. -Continue Buspirone PRN Plan - SCDs while in bed - Incentive spirometer - Await MRI - Eliquis held for possible injection vs back surgery - Pain medications as needed - Bowel regimen in place Admission and Anticipated Discharge Date Admission Date: June 02, 2022 Subjective Patient was sitting upright in bed with a pillow under her legs. Per patient and nursing she has had only minimal relief here with pain medications and 2 days of IV prednisone. She denies any urine or bowel incontinence, any paresthesias or anesthesias, she admits to slight weakness in her left leg. She has relief when she is bent and states before coming to the hospital she would just stand bent over to have relief. She feels worse with laying flat. Review of Systems Constitutional: no fever, no chills and no sweats Respiratory: no cough, no chest congestion and no dyspnea Cardiovascular: no chest pain, no dyspnea, no orthopnea, no palpitations and no edema Gastrointestinal: no abdominal pain, no early satiety, no nausea, no vomiting, no change in bowel habits and no blood in stools Genitourinary: no dysuria, no difficulty urinating and no urinary frequency Musculoskeletal: Pain left lower back and left anterior and lateral thigh Neurologic: + gait abnormality, + unsteadiness, + localized weakness and + radiating pain; no falls, no loss of sensation, no tingling, no numbness and no paresthesia Endocrine: no polydipsia, no polyphagia and no polyuria Physical Exam Constitutional: WD/WN, vitals as above Neck: trachea midline, no thyromegaly Respiratory: normal respiratory effort, lungs clear to auscultation Cardiovascular: Rate/Rhythm: + irregularly irregular Extremities: + varicosities; no calf tenderness, no pedal edema and no edema Gastrointestinal (Abdomen): normal bowel sounds, soft, nontender, no hepatosplenomegaly Skin: no rashes, warm and dry Neurologic: decreased strength left thigh, intact sensation, intact pulses, normal strength lower legs biaterally decreased ROM patientstands and walks slightly bent at the waist Psychiatric: A+Ox3, euthymic affect Results & Data Results & Data ([facility]) Vital Signs (Past 12 Hours) Vital Signs Temp Pulse Resp BP Pulse Ox O2 Del Method 06/04/22 07:10 36.5 C 101 H 16 124/87 96 Room Air Laboratory Results Abnormal lab results 06/04/22 06/04/22 Range/Units 05:49 05:49 RBC 4.09 L (4.20-5.40) M/uL RDW Std Deviation 47.4 H (36.4-46.3) fL MPV 9.3 L (9.4-12.4) fL Sodium 132 L (136-145) mmol/L Chloride 94 L (98-107) mmol/L Carbon Dioxide 33 H (21-32) mmol/L BUN 33 H (6-23) mg/dl BUN/Creatinine Ratio 28.0 H (10-20) Glucose 121 H (70-99(Fasting)) mg/dl Diagnostic Findings LUMBAR SPINE CT CT DOSE: 829.02 mGy.cm HISTORY: severe pain down left leg TECHNIQUE: Multiaxial CT images of the lumbar spine were performed and reformatted in the sagittal and coronal plane without the use of contrast. A dose lowering technique was utilized adhering to the principles of ALARA. COMPARISON: Chest CT 09/23/2017. FINDINGS: No fracture or subluxation. Moderate disc space narrowing at L5-S1. The sacrum is intact. No high-grade central canal stenosis by CT technique. There are punctate bilateral renal calculi. Coarse calcifications noted within the adrenal gland. No change in the dilated esophagus with a thickened wall. IMPRESSION: No fractures within the lumbar spine. PG Care Time/CCT Total # of Minutes Spent Total Time Spent with Patient: Total time spent is greater than 50% in coordination of care (as documented) at patient's floor/unit and/or counseling patient: Coding Level of Care Code 53444 SUB INP/OBS CARE 2/35MIN Diagnoses Acute lumbar radiculopathy M54.16 Hypertension I10 Chronic GERD K21.9 Atrial fibrillation I48.91 Adrenal nodule E27.9 Anxiety F41.9
[2022-06-04] MEDS ORDERED: LORazepam 2 MG/1 ML VIAL IV STA (09:30)
--- NOTE | 2022-06-04 10:05 | Orthopedic Consultation ---
Date of Consultation June 04, 2022 Assessment & Plan (1) Lumbar disc herniation with radiculopathy: Assessment L3-L4 foraminal disc herniation. Plan at this time I had the opportunity to review her CAT scan lumbar spine. I suspect she has a foraminal disc at L3-L4 on the left which would be concurrent with her clinical presentation. I would like to obtain an MRI lumbar spine for further anatomic detail. Pending these results we will make further recommendations as far as treatment. We have asked to hold her Deidrequis at this time. Patient stands agrees. History of Present Illness Reason for Consultation: Severe left anterior thigh pain Attending Physician: Kameron Reinoso History of Present Illness This a very pleasant 71-year-old female that began experiencing pain Saturday of last week. Denies any specific trauma fall or event. She states the pain radiates in the left groin anterior thigh to the left knee. She has severe pain to the left knee. Right lower extremities asymptomatic. She does work full- time at a gift shop. She does describe breakaway weakness with ambulation. Allergies Allergy/AdvReac Type Severity Reaction Status Date / Time No Known Allergies Allergy Verified 05/30/22 13:18 Home Medications Medication Instructions Recorded Confirmed Type pantoprazole 40 mg tablet,delayed 40 mg PO DAILY #30 tabs 06/20/21 05/30/22 Rx release rizatriptan 10 mg tablet 10 mg PO Q2H PRN migraine headache 06/20/21 05/30/22 Rx #30 tabs collagen,hydrolysate 500 mg-biotin 1 cap PO DAILY 01/04/22 05/30/22 History 800 mcg-ascorbic acid 50 mg capsule melatonin 5 mg chewable tablet 5 mg PO HS PRN Sleep 01/04/22 05/30/22 History apixaban 5 mg tablet (Eliquis) 5 mg PO BID #60 tabs 01/31/22 05/30/22 Rx diltiazem HCl 240 mg 240 mg PO DAILY #30 caps 01/31/22 05/30/22 Rx capsule,extended release 24 hr metoprolol succinate 25 mg 25 mg PO DAILY #30 tabs 01/31/22 05/30/22 Rx tablet,extended release 24 hr triamterene 37.5 1 cap PO DAILY PRN edema #30 caps 02/22/22 05/30/22 Rx mg-hydrochlorothiazide 25 mg capsule lorazepam 0.5 mg tablet 0.5 mg PO DAILY PRN anxiety #20 03/23/05/30/22 Rx tabs buspirone 7.5 mg tablet 7.5 mg PO BID PRN anxiety #30 tabs 05/28/22 05/30/22 Rx cyclobenzaprine 5 mg tablet 5 mg PO TID PRN muscle spasm #10 05/31/22 Rx tabs oxycodone 5 mg tablet 5 mg PO Q6H PRN pain #10 tabs 05/31/22 Rx prednisone 20 mg tablet 20 mg PO .COMPLEX #30 tabs 05/31/22 Rx Patient History Medical History (Updated 06/04/22 @ 10:04 by Margarito Clemens DO) Achalasia type 1, was followed by [facility] [place], s/p POEM proce done before 2016 Adrenal nodule Anemia Atrial fibrillation Bleeding disorder Esophageal stricture Has had multiple dilations over the last several years. Laceration Lung mass Palpitations Solitary pulmonary nodule Was followed by [facility], last scan in 2018, at that time nodule remains stable, no further follow-up recommended Surgical History History of elbow surgery Family History Father Gallbladder disease Prostate cancer Sister Lung disease Mother Breast cancer Denies family history of Ovarian cancer Myocardial infarction Colorectal cancer Social History Smoking Status: Never smoker Second Hand Exposure: No; Hx Alcohol Use: Yes Hx Substance Use: No Preferred Language: [place]ican Communication Ability: Effective Visual Impairment: Limited Hearing Ability: Normal Set Up Mechanic Stamping Machines Required: No Beliefs That Will Affect Care: None marital status: Current Living Situation: Spouse current occupational status: employed current occupation: manage a gift shop How many Children do You have: 2 Feels Safe at Home: Yes Childhood Exposure to Second-Hand Smoke: Yes caffeine: Yes during the past year weight has: remained stable Dental Care, Regularly: Yes Physical Activity Frequency: 1-2 Times per Week Seatbelt Use: always Sunscreen Use: Yes Do you think of yourself as: straight/heterosexual Gender Identity: Female Assistive Devices: Denture - Upper and Glasses Physical Exam Physical Exam: On exam the patient must sit up in bed. She is a positive Juancarlos sign with leg extension on the left. Negative on the right. She has reasonable +5-5 bilateral plantar flexion dorsiflexion extensor pollicis longus. Quadriceps appear to be symmetric and intact. Sensory is symmetric and intact. Results & Data ([facility]) Vital Signs (Past 12 Hours) Vital Signs Temp Pulse Resp BP Pulse Ox O2 Del Method 06/04/22 07:10 36.5 C 101 H 16 124/87 96 Room Air
[2022-06-04] MEDS ORDERED: oxyCODONE HCL IR 5 MG TAB (IMMEDIATE RELEASE) PO PRN (15:54)
[2022-06-04] MEDS ORDERED: GADOBUTROL 65ML VIAL IV ONE (21:01)
[2022-06-05] MEDS: HYDROmorphone INJ 2 MG/ML SYR/VIAL IV PRN ×4 (02:27→22:33)
[2022-06-05] MEDS: ONDANSETRON INJ 2 MG/ML 2 ML VIAL IV SCH ×4 (02:27→20:42)
[2022-06-05] MEDS: CYCLOBENZAPRINE HCL 5 MG TAB PO PRN (08:00)
[2022-06-05] MEDS: PANTOprazole 40 MG in SYRINGE 0 ML IV SCH (08:01)
[2022-06-05] MEDS: ACETAMINOPHEN 500 MG TAB PO SCH ×3 (08:01→20:43)
[2022-06-05] MEDS: TRIAMTERENE/HCTZ 37.5/25MG CAP PO SCH (08:02)
[2022-06-05] MEDS: METOPROLOL SUCC 25MG EXT REL TAB PO SCH (08:02)
[2022-06-05] MEDS: dilTIAZem HCL 240 MG CAPCR PO SCH (08:02)
[2022-06-05] MEDS: DOCUSATE SODIUM 100 MG CAP PO SCH ×2 (08:02→20:43)
[2022-06-05] MEDS: LIDOCAINE 5% 1 PATCH TD SCH (08:03)
[2022-06-05] MEDS: LACTULOSE SYRUP 30 GM/45 ML UDP PO SCH ×2 (08:04→21:16)
--- NOTE | 2022-06-05 08:50 | Hospitalist Progress Note ---
Date of Service June 05, 2022 Assessment & Plan (1) Lumbar disc herniation with radiculopathy: Plan: Patient with acute onset lumbar pain with left sided radiculopathy. Patient states this first began in January after running into a burt totter while playing with her granddaughter. She was treated with prednisone and PT and the pain completely resolved until last week. She states Saturday she went to bed fine and woke up Saturday with some mild left thigh pain that progressed. She states she had relief with being bent over. She saw her PCP and was rx some prednisone without any relief. CT of the back with disc bulges at multiple levels. She has been taking steroids, Flexeril and oxycodone at home with minimal improvement. -Admitted to medical -Tylenol 1000mg po TID -Heat to back -Continue Flexeril TID as needed -Lidoderm patch Changed pain medications as below -Dilaudid 2mg IV q4h as needed for pain 7 - 10/10 -Oxycodone q 6 hours prn pain 6 or less/10 -PT/OT evaluation Bowel regimen to prevent constipation started PT OT eval placed 06/04/22- Consult placed with Dr Clemens (orthopedic spine surgeon) MRI revealed annular disc buldging with possible superimposed Left foraminal disc protrusion at L3 L4 causing moderate foraminal and left lateral recess narrowing Eliquis held in anticipation for back surgery Encouraged to continue to get up and OOB Apply SCDs when in bed (2) Hypertension: Plan: Blood pressure elevated this AM, patient uncomfortable 129/89 -Continue Diltiazem and Metoprolol -Continue Triamterene/HCTZ (3) Chronic GERD: Plan: Chronic GERD, Achalasia /esophageal stricture -Continue Protonix daily -Thickened dilated esophagus on CT imaging (patient has hx of achalasia and follows with GI) Discussed outpatient GI follow up (4) Atrial fibrillation: Plan: -Continue Diltiazem 240mg po daily -Continue metoprolol 25mg daily Eliquis held (last dose 05/25/22 in AM) SCDs (5) Adrenal nodule: Plan: Noted on imaging from 2018 - nodular thickening and partially calcified right adrenal gland. (6) Anxiety: Plan: Chronic. -Continue Buspirone PRN Plan - SCDs while in bed - Incentive spirometer - Eliquis held for possible injection vs back surgery - Orthopedic surgery following and appreciate their in put - Pain medications as needed - Bowel regimen in place increased miralax to BID Admission and Anticipated Discharge Date Admission Date: June 02, 2022 Subjective Patient is sitting up in bed. She states the Dilaudid helps with the leg pain, but does not seem to last quite 6 hours. She had a Oxycodone this AM and it only helped slightly with the pain. She is passing flatus but has not had a BM. She denies any abdominal pain, nausea or vomiting. She denies any chest pain, SOB or dyspnea. Review of Systems Constitutional: no fever, no chills and no sweats Respiratory: no cough, no chest congestion and no dyspnea Cardiovascular: no chest pain, no dyspnea, no orthopnea, no palpitations and no edema Gastrointestinal: no abdominal pain, no early satiety, no nausea, no vomiting, no change in bowel habits and no blood in stools Genitourinary: no dysuria, no difficulty urinating and no urinary frequency Musculoskeletal: Pain left lower back and left anterior and lateral thigh Neurologic: + gait abnormality, + unsteadiness, + localized weakness and + radiating pain; no falls, no loss of sensation, no tingling, no numbness and no paresthesia Endocrine: no polydipsia, no polyphagia and no polyuria Physical Exam Constitutional: WD/WN, vitals as above Neck: trachea midline, no thyromegaly Respiratory: normal respiratory effort, lungs clear to auscultation Cardiovascular: RRR, no murmur, no edema Rate/Rhythm: + irregularly irregular Extremities: + varicosities; no calf tenderness, no pedal edema and no edema Gastrointestinal (Abdomen): normal bowel sounds, soft, nontender, no hepatosplenomegaly Musculoskeletal: mild decreased strength LLE Intact sensation Intact DP and PT pulses bilaterally Skin: no rashes, warm and dry Neurologic: patellar DTR's 2+ bilat, sensation intact and PERRL, EOMI, acc ommodation nl, no face palsy, no dysarthria Psychiatric: A+Ox3, euthymic affect Results & Data Results & Data ([facility]) Vital Signs (Past 12 Hours) Vital Signs Temp Pulse Resp BP Pulse Ox O2 Del Method 06/05/22 07:23 36.5 C 108 H 18 149/97 H 96 Room Air 06/04/22 21:30 36.7 C 92 H 16 146/89 H 98 Room Air PG Care Time/CCT Total # of Minutes Spent Total Time Spent with Patient: Total time spent is greater than 50% in coordination of care (as documented) at patient's floor/unit and/or counseling patient: Coding Level of Care Code 06489 SUB INP/OBS CARE 2/35MIN Diagnoses Lumbar disc herniation with radiculopathy M51.16 Hypertension I10 Chronic GERD K21.9 Atrial fibrillation I48.91 Adrenal nodule E27.9 Anxiety F41.9
--- NOTE | 2022-06-05 09:25 | Magnetic Resonance Report ---
MR lumbar spine wo/w con CLINICAL HISTORY: 71 years-old Female with pain and possible foramental disc L3-4. Acute low back pa in with left lower extremity radicular symptoms. COMPARISON: CT lumbar spine 06/02/2022. TECHNIQUE: Multiplanar, multi sequence MRI of the lumbar spine was performed without intravenous cont rast. FINDINGS: Veneer Taping Machine Operator localizer images demonstrate no gross extraspinal abnormality. Tubular structure within the rig ht abdomen is suggestive of a loop of bowel. No paravertebral edema identified. Dilated fluid-filled distal esophagus is better seen on the comparison CT study. Study is mildly motion degraded. 10 mm Ta rlov cyst at the level of S2-S3. Conus medullaris terminates at the L1-L2 level. No acute fracture, s ubluxation, endplate erosion or marrow replacing process. There is minimal Modic type I endplate dege neration at L5 inferiorly. Mild multilevel intervertebral disc space narrowing with disc desiccation and spondylitic spurring with ligamentum flavum thickening and moderate facet arthrosis. Disc desicca tion is noted throughout. No abnormal enhancement. T12-L1: No central canal or neural foraminal stenosis. L1-L2: No central canal or neural foraminal stenosis. L2-L3: No central canal or neural foraminal stenosis. L3-L4: Small posterior annular disc bulge, eccentric to the left. Possible left foraminal disc protr usion measuring approximately 8 mm. This finding in conjunction with ligamentum flavum thickening and facet arthrosis causes moderate left foraminal and mild left lateral recess narrowing. The central c anal and right neural foramen are patent. L4-L5: Mild spondylitic spurring with small posterior annular disc bulge, ligamentum flavum thickeni ng and moderate facet arthrosis. Flattening of the ventral thecal sac with mild narrowing of the late ral recesses. The central canal is patent. Mild right with [id number] left neural foraminal marisabel rowing. L5-S1: Spondylitic spurring with small posterior annular disc bulge, ligamentum flavum thickening an d mild facet arthrosis. The central canal is patent. Mild bilateral foraminal narrowing. IMPRESSION: 1. Motion degraded exam. 2. Discogenic degeneration with spondylitic spurring and facet arthrosis as above. 3. Eccentric annular disc bulge with possible superimposed left foraminal disc protrusion at L3-L4 ca uses moderate left foraminal and left lateral recess narrowing. 4. No significant central canal stenosis. 5. No abnormal enhancement. ACT 112: Negative or not required by law. The above report was generated using voice recognition software. It may contain grammatical, syntax o r spelling errors. Dictated: 06/05/2022 8:52 AM Transcribed: 06/05/2022 9:15 AM Leyla [id number] [email or web address] Electronically signed by: Juventino Longo M.D. 06/05/2022 9:24 AM
[2022-06-05] MEDS ORDERED: POLYETHYLENE (MIRALAX) 17 GM PACK PO PRN (10:21)
[2022-06-05] MEDS ORDERED: oxyCODONE HCL IR 5 MG TAB (IMMEDIATE RELEASE) PO PRN (10:21)
--- NOTE | 2022-06-05 11:06 | Orthopedic Progress Note ---
Date of Service June 05, 2022 Assessment & Plan (1) Lumbar disc herniation with radiculopathy: Plan: Options have been reviewed including pain management versus ultimate surgical fixation. Surgery would require posterior lumbar decompression instrumented fusion L3-4. This would address her far lateral disc herniation which extends into the foramen causing severe left-sided L3-4 foraminal stenosis. Risk, benefits, pros cons and alternatives were outlined in detail. She was to proceed with above-mentioned surgical planning as soon as possible. Eliquis was held as of yesterday. We will try and proceed with surgical planning for tomorrow June 06. Admission and Anticipated Discharge Date Admission Date: June 02, 2022 Shantanu Shaver was seen and examined along with Dr. Clemens. She still struggling with significant left lower extremity pain. This is consistent with an acute far lateral disc herniation at L3-4 on the left. This is confirmed on lumbar MRI. Review of Systems Review of Systems: All systems reviewed & are unremarkable except as noted in HPI & below Physical Exam Physical Exam: Very uncomfortable but alert and oriented x3 Strength unchanged left lower extremity Results & Data ([facility]) Vital Signs (Past 12 Hours) Vital Signs Temp Pulse Resp BP Pulse Ox O2 Del Method 06/05/22 07:23 36.5 C 108 H 18 149/97 H 96 Room Air Diagnostic Findings [facility], [place] [phone] Magnetic Resonance Report Patient:ERICH WOODARD Admit Date:06/02/22 MR#:[id number] Address1:[address] [place] [address] Acct ID:[id number] Address2: Date:1950 [facility] Zip:[place] [id number] Age:71 Location:3E Sex:F Room/Bed:E3[facility] Att Phy:Kameron Reinoso M.D. Diagnosis:INTRACTABLE BACK PAIN Rosie Phy:Ghazal Alcantar CRNP Service Date:06/04/22 Fam Phy: Interpreting Phy:Juventino Camarillo Phy:Elvira Fisher D.O. Ordering Phy:Anne Marie Carter PA-C cc: ~ MR lumbar spine wo/w con CLINICAL HISTORY: 71 years-old Female with pain and possible foramental disc L3- 4. Acute low back pain with left lower extremity radicular symptoms. COMPARISON: CT lumbar spine 06/02/2022. TECHNIQUE: Multiplanar, multi sequence MRI of the lumbar spine was performed without intravenous contrast. FINDINGS: Clearance Diver localizer images demonstrate no gross extraspinal abnormality. Tubular structure within the right abdomen is suggestive of a loop of bowel. No paravertebral edema identified. Dilated fluid-filled distal esophagus is better seen on the comparison CT study. Study is mildly motion degraded. 10 mm Tarlov cyst at the level of S2-S3. Conus medullaris terminates at the L1-L2 level. No acute fracture, subluxation, endplate erosion or marrow replacing process. There is minimal Modic type I endplate degeneration at L5 inferiorly. Mild multilevel intervertebral disc space narrowing with disc desiccation and spondylitic spurring with ligamentum flavum thickening and moderate facet arthrosis. Disc desiccation is noted throughout. No abnormal enhancement. T12-L1: No central canal or neural foraminal stenosis. L1-L2: No central canal or neural foraminal stenosis. L2-L3: No central canal or neural foraminal stenosis. L3-L4: Small posterior annular disc bulge, eccentric to the left. Possible left foraminal disc protrusion measuring approximately 8 mm. This finding in conjunction with ligamentum flavum thickening and facet arthrosis causes moderate left foraminal and mild left lateral recess narrowing. The central canal and right neural foramen are patent. L4-L5: Mild spondylitic spurring with small posterior annular disc bulge, ligamentum flavum thickening and moderate facet arthrosis. Flattening of the ventral thecal sac with mild narrowing of the lateral recesses. The central canal is patent. Mild right with [id number] left neural foraminal narrowing. L5-S1: Spondylitic spurring with small posterior annular disc bulge, ligamentum flavum thickening and mild facet arthrosis. The central canal is patent. Mild bilateral foraminal narrowing. IMPRESSION: 1. Motion degraded exam. 2. Discogenic degeneration with spondylitic spurring and facet arthrosis as above. 3. Eccentric annular disc bulge with possible superimposed left foraminal disc protrusion at L3-L4 causes moderate left foraminal and left lateral recess narrowing. 4. No significant central canal stenosis. 5. No abnormal enhancement. ACT 112: Negative or not required by law. The above report was generated using voice recognition software. It may contain grammatical, syntax or spelling errors. Dictated: 06/05/2022 8:52 AM Transcribed: 06/05/2022 9:15 AM Leyla [id number] [email or web address] Electronically signed by: Juventino Longo M.D. 06/05/2022 9:24 AM Dictated:06/05/22 0852 Transcribed: 06/05/22 0915
--- NOTE | 2022-06-05 15:03 | Anesthesiology Consultation ---
Date of Service June 05, 2022 Assessment & Plan (1) Encounter for pre-operative examination: Chart Review Chart Review: Acceptable Risk for Surgery (will check on arrival for appropriate heart rate control) History Surgery Operation Date: 06/06/22 07:00 Proposed Procedures p L3-L4 Decompression and Fusion, Spinal Cord Monitoring - Margarito Clemens DO Height/Weight Height: 5 ft 6 in Weight: 61.4 kg Allergies Allergy/AdvReac Type Severity Reaction Status Date / Time No Known Allergies Allergy Verified 05/30/22 13:18 Medications Home Medications Medication Instructions Recorded Confirmed Last Taken pantoprazole 40 mg tablet,delayed 40 mg PO DAILY #30 tabs 06/20/21 05/30/22 01/04/22 release rizatriptan 10 mg tablet 10 mg PO Q2H PRN migraine headache 06/20/21 05/30/22 Unknown #30 tabs collagen,hydrolysate 500 mg-biotin 1 cap PO DAILY 01/04/22 05/30/22 01/04/22 800 mcg-ascorbic acid 50 mg capsule melatonin 5 mg chewable tablet 5 mg PO HS PRN Sleep 01/04/22 05/30/22 Unknown apixaban 5 mg tablet (Eliquis) 5 mg PO BID #60 tabs 01/31/22 05/30/22 Unknown diltiazem HCl 240 mg 240 mg PO DAILY #30 caps 01/31/22 05/30/22 Unknown capsule,extended release 24 hr metoprolol succinate 25 mg 25 mg PO DAILY #30 tabs 01/31/22 05/30/22 Unknown tablet,extended release 24 hr triamterene 37.5 1 cap PO DAILY PRN edema #30 caps 02/22/22 05/30/22 Unknown mg-hydrochlorothiazide 25 mg capsule lorazepam 0.5 mg tablet 0.5 mg PO DAILY PRN anxiety #20 03/23/22 05/30/22 Unknown tabs buspirone 7.5 mg tablet 7.5 mg PO BID PRN anxiety #30 tabs 05/28/22 05/30/22 Unknown cyclobenzaprine 5 mg tablet 5 mg PO TID PRN muscle spasm #10 05/31/22 Unknown tabs oxycodone 5 mg tablet 5 mg PO Q6H PRN pain #10 tabs 05/31/22 Unknown prednisone 20 mg tablet 20 mg PO .COMPLEX #30 tabs 05/31/22 Unknown Active Medications Generic Name Dose Route Start Last Admin Trade Name Freq PRN Reason Stop Dose Admin Acetaminophen 1,000 mg 06/02/22 14:00 06/05/22 14:29 Acetaminophen 500 Mg Tab PO 07/02/22 13:59 1,000 mg TID HASMUKH Administration Apixaban 5 mg 06/02/22 09:00 06/04/22 08:07 Apixaban 5 Mg Tablet PO 07/02/22 08:59 5 mg BID HASMUKH Administration Cyclobenzaprine HCl 5 mg 06/02/22 08:42 06/05/22 08:00 Cyclobenzaprine Hcl 5 Mg Tab PO 07/02/22 08:41 5 mg TID PRN Administration muscle spasm Diltiazem HCl 240 mg 06/02/22 09:00 06/05/22 08:02 Diltiazem Hcl 240 Mg Capcr PO 07/02/22 08:59 240 mg DAILY HASMUKH Administration Docusate Sodium 100 mg 06/03/22 21:00 06/05/22 08:02 Docusate Sodium 100 Mg Cap PO 06/10/22 20:59 100 mg BID HASMUKH Administration Pantoprazole Sodium 40 mg/ 10 mls @ 5 mls/min 06/02/22 21:00 06/05/22 08:01 Syringe IV 06/05/22 20:59 5 mls/min BID HASMUKH Administration Lactulose 30 gm 06/03/22 21:00 06/05/22 08:04 Lactulose Syrup 30 Gm/45 Ml Udp PO 06/06/22 20:59 Not Given BID HASMUKH Lidocaine 1 patch 06/02/22 09:00 06/05/22 08:03 Lidocaine 5% 1 Patch TD 07/02/22 08:59 1 patch QAM HASMUKH Administration Lorazepam 0.5 mg 06/02/22 08:42 06/04/22 19:10 Lorazepam 0.5 Mg Tab PO 07/02/22 08:41 0.5 mg DAILY PRN Administration anxiety Metoprolol Succinate 25 mg 06/02/22 09:00 06/05/22 08:02 Metoprolol Succ 25mg Ext Rel Tab PO 07/02/22 08:59 25 mg DAILY HASMUKH Administration Miscellaneous 1 each 06/02/22 21:00 06/04/22 19:14 Remove Lidoderm Patch N/A 07/02/22 20:59 1 each DAILY@2100 HASMUKH Administration Ondansetron HCl 4 mg 06/02/22 14:30 06/05/22 14:29 Ondansetron Inj 2 Mg/Ml 2 Ml Vial IV 07/02/22 14:29 4 mg Q6H HASMUKH Administration Senna/Docusate Sodium 1 tab 06/02/22 08:42 06/03/22 17:38 Docusate Sodium/Senna 50/8.6mg Tab PO 07/02/22 08:41 1 tab QAM PRN Administration constipation Triamterene/Hydrochlorothiazide 1 cap 06/03/22 09:15 06/05/22 08:02 Triamterene/Hctz 37.5/25mg Cap PO 07/03/22 09:14 1 cap DAILY HASMUKH Administration Past Medical History Medical History Achalasia type 1, was followed by [facility] [place], s/p POEM proce done before 2015 Adrenal nodule Anemia Atrial fibrillation Bleeding disorder Esophageal stricture Has had multiple dilations over the last several years. Laceration Lung mass Palpitations Solitary pulmonary nodule Was followed by the [facility], last scan in 2018, at that time nodu le remains stable, no further follow-up recommended Past Family History Family History Father Gallbladder disease Prostate cancer Sister Lung disease Mother Breast cancer Denies family history of Ovarian cancer Myocardial infarction Colorectal cancer Past Surgical History Surgical History History of elbow surgery Social History Smoking Status: Never smoker Do You Dip or Chew Tobacco: No Hx Alcohol Use: Yes alcohol intake frequency: holidays/special occasions only Hx Substance Use: No Physical Exam Vital Signs Last Vital Signs Temp 36.8 C 06/05/22 14:31 Pulse 105 H 06/05/22 14:31 Resp 16 06/05/22 14:31 BP 128/89 06/05/22 14:31 Pulse Ox 98 06/05/22 14:31 O2 Del Method 06/05/22 14:31 Testing Laboratory Results 06/04/22 05:49 06/04/22 05:49 Electrocardiogram Date: 01/04/22 Findings: + AFIB @ (140's) registered nurse cardiac showed HR's from 71-125 and PVC's 12% with runs up to 4 in a row Echocardiogram Date: 03/19/22 EF: 55-60% LV Function: normal Valvular Disease: + MR (moderate)
[2022-06-06] MEDS: ONDANSETRON INJ 2 MG/ML 2 ML VIAL IV SCH ×3 (01:48→13:39)
[2022-06-06] MEDS: HYDROmorphone INJ 2 MG/ML SYR/VIAL IV PRN ×3 (03:38→12:47)
--- NOTE | 2022-06-06 08:47 | Hospitalist Progress Note ---
Date of Service June 06, 2022 Assessment & Plan (1) Lumbar disc herniation with radiculopathy: Plan: Patient with acute onset lumbar pain with left sided radiculopathy. Patient states this first began in January after running into a burt totter while playing with her granddaughter. She was treated with prednisone and PT and the pain completely resolved until last week. She states Saturday she went to bed fine and woke up Saturday with some mild left thigh pain that progressed. She states she had relief with being bent over. She saw her PCP and was rx some prednisone without any relief. CT of the back with disc bulges at multiple levels. She has been taking steroids, Flexeril and oxycodone at home with minimal improvement. -Admitted to medical -Tylenol 1000mg po TID -Heat to back -Continue Flexeril TID as needed -Lidoderm patch Changed pain medications as below -Dilaudid 2mg IV q4h as needed for pain 7 - 10/10 -Oxycodone q 6 hours prn pain 6 or less/10 -PT/OT evaluation Bowel regimen to prevent constipation started passing flatus but no BM on BID miralax PT OT eval placed 06/04/22- Consult placed with Dr Clemens (orthopedic spine surgeon) MRI revealed annular disc buldging with possible superimposed Left foraminal disc protrusion at L3 L4 causing moderate foraminal and left lateral recess narrowing Eliquis held in anticipation for back surgery 06/06/22 Encouraged to continue to get up and OOB Apply SCDs when in bed (2) Hypertension: Plan: Blood pressure elevated this AM, patient uncomfortable 134/86 -Continue Diltiazem and Metoprolol -Continue Triamterene/HCTZ (3) Chronic GERD: Plan: Chronic GERD, Achalasia /esophageal stricture -Continue Protonix daily -Thickened dilated esophagus on CT imaging (patient has hx of achalasia and follows with GI) Discussed outpatient GI follow up (4) Atrial fibrillation: Plan: Chronic atrial fibrillation -Continue Diltiazem 240mg po daily -Continue metoprolol 25mg daily Eliquis held (last dose 05/25/22 in AM) SCDs (5) Adrenal nodule: Plan: Noted on imaging from 2018 - nodular thickening and partially calcified right adrenal gland. (6) Anxiety: Plan: Chronic. -Continue Buspirone PRN Plan - SCDs while in bed - Incentive spirometer - Eliquis held for back surgery 06/06/22 - Orthopedic surgery following and appreciate their in put - Pain medications as needed - Bowel regimen in place Admission and Anticipated Discharge Date Admission Date: June 02, 2022 Subjective Patient seen this AM. She was sitting upright in bed with her knees on a pillow. She stated she was nervous for her upcoming surgery today. She denied any changes in her left leg pain. She denie any new complaints besides being nervous. Review of Systems Review of Systems: All other ROS negative unless stated above Constitutional: no fever, no chills and no sweats Respiratory: no cough, no chest congestion and no dyspnea Cardiovascular: no chest pain, no dyspnea, no orthopnea, no palpitations and no edema Gastrointestinal: no abdominal pain, no early satiety, no nausea, no vomiting, no change in bowel habits and no blood in stools Genitourinary: no dysuria, no difficulty urinating and no urinary frequency Musculoskeletal: Pain left lower back and left anterior and lateral thigh Neurologic: + gait abnormality, + unsteadiness, + localized weakness and + radiating pain; no falls, no loss of sensation, no tingling, no numbness and no paresthesia Endocrine: no polydipsia, no polyphagia and no polyuria Physical Exam Constitutional: WD/WN, vitals as above Neck: trachea midline, no thyromegaly Respiratory: normal respiratory effort, lungs clear to auscultation Cardiovascular: RRR, no murmur, no edema Rate/Rhythm: + irregularly irregular Extremities: + varicosities; no calf tenderness, no pedal edema and no edema Gastrointestinal (Abdomen): normal bowel sounds, soft, nontender, no hepatosplenomegaly Skin: no rashes, warm and dry Neurologic: patellar DTR's 2+ bilat, sensation intact and PERRL, EOMI, accommodation nl, no face palsy, no dysarthria Psychiatric: A+Ox3, euthymic affect Results & Data Results & Data ([facility]) Vital Signs (Past 12 Hours) Vital Signs Temp Pulse Resp BP Pulse Ox O2 Del Method 06/06/22 07:27 36.6 C 118 H 18 134/86 97 Room Air PG Care Time/CCT Total # of Minutes Spent Total Time Spent with Patient: Total time spent is greater than 50% in coordination of care (as documented) at patient's floor/unit and/or counseling patient: Coding Level of Care Code 34689 SUB INP/OBS CARE Diagnoses Lumbar disc herniation with radiculopathy M51.16 Hypertension I10 Chronic GERD K21.9 Atrial fibrillation I48.91 Adrenal nodule E27.9 Anxiety F41.9
[2022-06-06] MEDS: DOCUSATE SODIUM 100 MG CAP PO SCH (08:57)
[2022-06-06] MEDS: ACETAMINOPHEN 500 MG TAB PO SCH ×2 (08:58→13:38)
[2022-06-06] MEDS: METOPROLOL SUCC 25MG EXT REL TAB PO SCH (08:58)
[2022-06-06] MEDS: TRIAMTERENE/HCTZ 37.5/25MG CAP PO SCH (08:58)
[2022-06-06] MEDS: LACTULOSE SYRUP 30 GM/45 ML UDP PO SCH (08:59)
[2022-06-06] MEDS: dilTIAZem HCL 240 MG CAPCR PO SCH (08:59)
[2022-06-06] MEDS: LIDOCAINE 5% 1 PATCH TD SCH (08:59)
--- NOTE | 2022-06-06 15:42 | History & Physical Bridge Note ---
Date of Service June 06, 2022 History & Physical Bridge Note I have examined the patient, reviewed the History & Physical and in the interval since the performance of the History & Physical I have noted the following changes of clinical significance: no changes noted Lumbar decompression and fusion L3-L4
[2022-06-06] MEDS ORDERED: ceFAZolin 2,000 MG/15 ML IV PUSH IV ONE (15:52)
[2022-06-06] MEDS ORDERED: BUPIVACAINE/EPINEPHRINE 0.25% 1:200,000 30 ML VIAL ONE (15:59)
[2022-06-06] MEDS ORDERED: ceFAZolin 330 MG/ML 1 GM VIAL ONE (15:59)
[2022-06-06] MEDS ORDERED: fentaNYL citrate 100 MCG/2 ML VIAL ONE (16:06)
[2022-06-06] MEDS ORDERED: PROPOFOL IV EMULSION 10 MG/ML 20 ML VIAL IV ONE (16:09)
[2022-06-06] MEDS ORDERED: DEXAMETHASONE SOD INJ 4 MG/ML VIAL ONE (16:09)
[2022-06-06] MEDS ORDERED: ROCURONIUM BROMIDE 10 MG/ML 5 ML VIAL IV ONE (16:09)
[2022-06-06] MEDS ORDERED: LIDOCAINE 2% MPF LOCAL 5 ML VIAL INFIL ONE (16:09)
[2022-06-06] MEDS ORDERED: HYDROmorphone INJ 2 MG/ML SYR/VIAL IV PRN (16:16)
[2022-06-06] MEDS ORDERED: ONDANSETRON INJ 2 MG/ML 2 ML VIAL IV PRN ×2 (16:16→19:02)
[2022-06-06] MEDS ORDERED: ATROPINE SULFATE 0.1 MG/ML 10ML SYR IV PRN (16:16)
[2022-06-06] MEDS ORDERED: PROMETHAZINE HCL 6.25 MG in SODIUM CHLORIDE 0.9% 50 ML IV PRN (16:16)
[2022-06-06] MEDS ORDERED: ePHEDrine sulfate 50 MG/ML AMP IV PRN (16:16)
[2022-06-06] MEDS ORDERED: PHENYLEPHRINE HCL 10 MG/ML VIAL ONE (16:41)
[2022-06-06] MEDS ORDERED: FLOSEAL HEMOSTATIC MATRIX 10ML TOP ONE (16:48)
--- NOTE | 2022-06-06 17:35 | Operative Report ---
Post Operative Report Pre & Post Diagnosis Operation Date: 06/06/22 07:00 Pre-Op Diagnosis: Lumbar Disc Herniation with Radiculopathy Post-Op Diagnosis: Lumbar Disc Herniation with Radiculopathy I identified the patient and participated in the time-out.: Yes Procedure Operation Date: 06/06/22 07:00 Actual Procedures #1 Limited motion bilaterally for seconds and foraminotomies L3-L4 #2 posterior spinal fusion L3-L4. #3 placement posttransplantation L3-L4. #4 interbody fusion L3-L4. #5 placement of Spira 12 x 26 mm cage at L3-L4. #6 placement likely have a stenosis of the graft in the posterior gutters. #7 placement of I factor amount of the test interbody space and posterior gutters. Surgeon Margarito Clemens DO Straight Cutter Machine Cici Henao Estimated Blood Loss 50 Findings Consistent with Post-Op Diagnosis Specimens None Indications This is a 71-year-old female presents with the above-mentioned diagnosis after presenting with inability to ambulate and severe pain elected to undergo the above-mentioned procedure. Description of Procedure Patient was met with identified informed consent obtained. Patient was then taken to the operative suite underwent ablation placed in a prone position on the [place] table top Ric frame. All bony prominences well-padded eyes insp ected to ensure no external pressure placed upon the parent this point the lumbar spine was prepped and draped in normal sterile fashion. Sharp dissection with assistance bradycardia formed into an exposing the lamina and transverse processes of L3-L4. From caudal to cephalad fashion complete laminectomy L3 was performed including bilaterally a facetectomy and complete facetectomy on the left to expose a severely compressed exiting nerve root. There is fragments of disc material that had occupied the foraminal extraforaminal region. These were removed in their entirety to decompress the nerve. Pedicle screws then placed at L3-4 bilaterally with assistance of fluoroscopy and the proper size cricket placed. Bilateral trans foraminal approach left complete discectomy of L3-L4 was performed and placed grade 2 subcortical bone and a Spira 12 x 26 mm cage filled with I factor tapped position. The rods were then compressed locked in final position bilaterally. The transverse processes of L3-L4 burred to cortical bleeding bone. I factor, combined with V toss was placed in the posterior gutters as well as locally harvested morselized autograft. 15 round drain was inserted. Incision was then closed with 1 Vicryl to fascia 2-0 Vicryl subcutaneously and 4 Monocryl for final skin closure. Steri-Strips dressings placed. Patient waken taken to PACU stable addition. Please note spotting on wanting to utilize that the procedure no changes noted. Courtney Henao was present that the entire procedure and all the patient position complex questions of the surgery and final skin closure. I attest to the content of the Intraoperative Record and any orders documented therein. Any exceptions are noted below.
[2022-06-06] MEDS ORDERED: METOPROLOL TARTRATE 1 MG/ML VIAL IV STA (18:01)
[2022-06-06] MEDS ORDERED: GLYCOPYRROLATE 0.2 MG/ML VIAL ONE (18:02)
[2022-06-06] MEDS ORDERED: ONDANSETRON INJ 2 MG/ML 2 ML VIAL ONE (18:02)
--- NOTE | 2022-06-06 18:03 | Anesthesiology Progress Note ---
Date of Service June 06, 2022 Anesthesia Post Procedure Vital Signs Vital Signs: Temp Pulse Resp BP BP Pulse Ox O2 Del Method 06/06/22 15:05 36.7 C 105 H 20 153/100 H 97 Room Air 06/06/22 15:00 36.3 C L 121 H 144/100 H 92 Room Air 06/06/22 07:27 36.6 C 118 H 18 134/86 97 Room Air 06/05/22 20:39 36.5 C 89 18 153/84 H 98 Room Air Pain Intensity Left Leg: Pain Intensity: 7 Transfer of Care Handoff Completed per policy Notes Mental Status: alert / awake / arousable and participated in evaluation Patient Amnestic to Procedure: Yes Nausea / Vomiting: adequately controlled Pain: adequately controlled Airway Patency, RR, SpO2: stable & adequate BP & HR: see Notes below Hydration State: stable & adequate Anesthetic Complications: no major complications apparent and Pt Satisfied with anesthetic care Notes: Patient with known A fib and was tachycardic prior to surgery. HR better controlled intraoperatively but again tachycardic postop. Will treat patient's pain and also will administer small dose of IV metoprolol for better HR control.
--- NOTE | 2022-06-06 18:05 | Fluoroscopy Report ---
FL lumbar spine 2-3V CLINICAL HISTORY: L3-L4 Decompression/Fusion COMPARISON STUDY: Lumbar spine MRI 06/04/2022. FLUOROSCOPY TIME: 12 seconds FLUOROSCOPY IMAGES: 2 EXPOSURE DOSE: 4.7 mGy FINDINGS: Posterior decompression and fusion at L3-L4 with pedicle screws and rods. A disc spacer is in place. The hardware appears intact. IMPRESSION: Fluoroscopic assistance as above. ACT 112: Negative or not required by law. Electronically signed by: Norman Moore M.D. 06/06/2022 6:03 PM
[2022-06-06] MEDS: fentaNYL citrate 100 MCG/2 ML VIAL IV PRN ×2 (18:14→18:19)
[2022-06-06] MEDS ORDERED: DO NOT ADMINISTER PNEUMOCOCCAL VACCINE PRN (19:02)
[2022-06-06] MEDS ORDERED: SOD PHOSPHATE/SOD BIPHOSPHATE ENEMA 132 ML BTL PR PRN (19:02)
[2022-06-06] MEDS ORDERED: PROMETHAZINE HCL 12.5 MG in SODIUM CHLORIDE 0.9% 50 ML IV PRN (19:02)
[2022-06-06] MEDS ORDERED: ALUMINUM/MAGNESIUM SUSP 30 ML UDC PO PRN (19:02)
[2022-06-06] MEDS ORDERED: traMADol HCL 50 MG TABLET PO PRN (19:02)
[2022-06-06] MEDS ORDERED: LORazepam 2 MG/1 ML VIAL IV PRN (19:02)
[2022-06-06] MEDS ORDERED: bisacodyL 10 MG SUPP PR PRN (19:02)
[2022-06-06] MEDS ORDERED: diphenhydrAMINE Capsule 25 MG CAP PO PRN (19:02)
[2022-06-06] MEDS ORDERED: HYDROmorphone INJ 0.5 MG/0.5 ML SYR IV PRN (19:02)
[2022-06-06] MEDS ORDERED: ACETAMINOPHEN 1,000 MG/100 ML VIAL IV PRN (19:02)
[2022-06-06] MEDS ORDERED: oxyCODONE HCL IR 5 MG TAB (IMMEDIATE RELEASE) PO PRN (19:02)
[2022-06-06] MEDS ORDERED: hydrOXYzine HCl 25 MG TAB PO PRN (19:02)
[2022-06-06] MEDS ORDERED: DO NOT ADMINISTER FLU VACCINE PRN (19:02)
[2022-06-06] MEDS ORDERED: METOCLOPRAMIDE HCL INJ 5 MG/ML 2 ML VIAL IV PRN (19:02)
[2022-06-06] MEDS ORDERED: ONDANSETRON 4 MG OD TAB PO PRN (19:02)
[2022-06-06] MEDS ORDERED: FAMOTIDINE 20 MG TAB PO PRN (19:02)
[2022-06-06] MEDS ORDERED: MAGNESIUM HYDROXIDE SUSP 30 ML UDC PO PRN (19:02)
[2022-06-06] MEDS ORDERED: NALOXONE HCL 0.4 MG/1 ML VIAL/CARP IV PRN (19:02)
[2022-06-06] MEDS ORDERED: LORazepam 0.5 MG TAB PO PRN (19:02)
[2022-06-06] MEDS ORDERED: HYDROmorphone INJ 1 MG/ML SYRINGE IV PRN (19:02)
[2022-06-06] MEDS: DOCUSATE SODIUM/SENNA 50/8.6MG TAB PO SCH (19:50)
[2022-06-06] MEDS: LACTATED RINGER'S 1,000 ML IV SCH (19:50)
[2022-06-07] MEDS: ceFAZolin 1000MG 1,000 MG/7.5 ML SYR IV SCH ×2 (01:25→10:08)
[2022-06-07] MEDS: POLYETHYLENE (MIRALAX) 17 GM PACK PO SCH ×4 (05:10→22:06)
[2022-06-07 06:25] LABS: Hemoglobin 13.6 g/dl (12.0-16.0); Mean Corpuscular Hemoglobin 32.1 pg (25.0-34.0); Mean Corpuscular Volume 94.3 fL (80.0-100.0); Mean Platelet Volume 9.6 fL (9.4-12.4); Platelet Count 318 K/uL (130-400); RDW Coefficient of Variation 13.5 % (11.5-14.5); RDW Standard Deviation 46.8 fL (36.4-46.3); Red Blood Count 4.24 M/uL (4.20-5.40); White Blood Count 18.28 K/ul (4.8-10.8)
[2022-06-07 06:41] LABS: Calcium 9.3 mg/dl (8.5-10.1); Creatinine Clr Calc Pharmacy 41.5 ml/min; Est GFR (African American) 54.1 ml/min; Est GFR (Non-African American) 46.7 ml/min; Potassium 3.7 mmol/L (3.5-5.1)
[2022-06-07 06:47] LABS: Basophils # (auto) 0.02 K/uL (0-0.2); Basophils % (auto) 0.1 %; Immature Granulocytes # (auto) 0.16 K/uL (0.01-0.20); Immature Granulocytes % (auto) 0.9 %; Lymphocytes # (auto) 0.56 K/uL (1.2-3.4); Lymphocytes % (auto) 3.1 %; Monocytes # (auto) 0.99 K/uL (0.11-0.59); Monocytes % (auto) 5.4 %; Neutrophils # (auto) 16.55 K/uL (1.40-6.50); Neutrophils % (auto) 90.5 %
--- NOTE | 2022-06-07 08:18 | Orthopedic Progress Note ---
Date of Service June 07, 2022 Assessment & Plan (1) Lumbar disc herniation with radiculopathy: Plan: At this time initiate physical therapy monitor. Her YANA output discharge home in the next day or so. Admission and Anticipated Discharge Date Admission Date: June 02, 2022 Subjective Back pain controlled leg pain markedly improved Physical Exam Physical Exam: Patient is in bed. She appears comfortable. Is good strength testing. Results & Data ([facility]) Vital Signs (Past 12 Hours) Vital Signs Temp Pulse Resp BP BP Pulse Ox O2 Del Method 06/07/22 07:11 36.7 C 95 H 17 107/71 97 Room Air 06/07/22 03:16 36.5 C 95 H 16 115/72 93 Room Air 06/06/22 21:32 36.5 C 93 H 16 109/61 100 Room Air
[2022-06-07] MEDS: TRIAMTERENE/HCTZ 37.5/25MG CAP PO SCH (09:32)
[2022-06-07] MEDS: METOPROLOL SUCC 25MG EXT REL TAB PO SCH (09:32)
[2022-06-07] MEDS: dilTIAZem HCL 240 MG CAPCR PO SCH (09:32)
[2022-06-07] MEDS: ACETAMINOPHEN 500 MG TAB PO PRN ×2 (09:33→19:24)
--- NOTE | 2022-06-07 11:36 | Hospitalist Progress Note ---
Date of Service June 07, 2022 Assessment & Plan (1) Lumbar disc herniation with radiculopathy: Plan: Patient with acute onset lumbar pain with left sided radiculopathy. Patient states this first began in January after running into a burt totter while playing with her granddaughter. She was treated with prednisone and PT and the pain completely resolved until last week. She states Saturday she went to bed fine and woke up Saturday with some mild left thigh pain that progressed. She states she had relief with being bent over. She saw her PCP and was rx some prednisone without any relief. CT of the back with disc bulges at multiple levels. She has been taking steroids, Flexeril and oxycodone at home with minimal improvement. - L foraminal disc protrusion L3-4 s/p lumbar decompression and fusion pod #1 - Tylenol 1000mg po TID - Oxycodone 5-10mg q 4 hours prn pain 6 or less/10 - YANA drain management per orthopsine - PT/OT evaluation - Maintain bowel regimen, continue Miralax - Eliquis remains on hold (held prior to surgery) - should be able to be resumed tomorrow AM, will d/w orthospine - Still on IV Dilaudid for breakthrough pain which makes her high risk (2) Hyponatremia: Plan: - Likely combination of surgery but patient is also on Maxzide - Na 131 (chemistry profile reviewed today) - Hold Maxzide, repeat labs in AM (3) Leukocytosis: Plan: - CBC reviewed, wbc count 18,280 - Suspect steroid induced, no s/sx concerning infection, afebrile, HD stable - Monitor (4) Hypertension: Plan: Blood pressure elevated this AM, patient uncomfortable 134/86 - Continue Diltiazem and Metoprolol - Continue Triamterene/HCTZ (5) Atrial fibrillation: Plan: Chronic, rate controlled - Continue Diltiazem 240mg po daily - Continue metoprolol 25mg daily - On Eliquis which has been placed on hold for surgery (6) Adrenal nodule: Plan: Noted on imaging from 2018 - nodular thickening and partially calcified right adrenal gland. (7) Anxiety: Plan: Chronic. - Continue Buspirone PRN Plan Plan as outlined above. Repeat labs in AM. Above plan of care has been d/w Dr. Tabares. Admission and Anticipated Discharge Date Admission Date: June 02, 2022 Subjective Patient seen on rounds today. Sitting up in bedside chair. Reports substantial improvement in left sided leg pain. Back incision is sore but otherwise no uncontrolled pain. Able to void, passing flatus. No BM since surgery. Denies fever/chills, cp, or dyspnea. Physical Exam Physical Exam: GENERAL: 71 yo Well-developed, well-nourished WF. NAD. LUNGS: Clear to auscultation bilaterally. CARDIOVASCULAR: S1 S2. No M/G/R. ABDOMEN: Soft, non-tender. Bowel sounds normoactive x 4 quad. EXTREMITIES: No edema. LE strength 5/5. Peripheral pulses +2/4. Results & Data Results & Data ([facility]) Vital Signs (Past 12 Hours) Vital Signs Temp Pulse Resp BP BP Pulse Ox O2 Del Method 06/07/22 07:11 36.7 C 95 H 17 107/71 97 Room Air 06/07/22 03:16 36.5 C 95 H 16 115/72 93 Room Air Laboratory Results 06/07/22 05:53 06/07/22 05:53 PG Care Time/CCT Total # of Minutes Spent Total Time Spent with Patient: Total time spent is greater than 50% in coordination of care (as documented) at patient's floor/unit and/or counseling patient: Coding Level of Care Code 34254 SUB INP/OBS CARE 3/50MIN Diagnoses Lumbar disc herniation with radiculopathy M51.16 Hyponatremia E87.1 Leukocytosis D72.829 Hypertension I10 Atrial fibrillation I48.91 Adrenal nodule E27.9 Anxiety F41.9
[2022-06-07] MEDS: LACTATED RINGER'S 1,000 ML IV SCH (19:13)
[2022-06-07] MEDS: DOCUSATE SODIUM/SENNA 50/8.6MG TAB PO SCH (19:24)
[2022-06-08] MEDS: POLYETHYLENE (MIRALAX) 17 GM PACK PO SCH (05:39)
[2022-06-08] MEDS: ACETAMINOPHEN 500 MG TAB PO PRN ×2 (05:40→11:17)
[2022-06-08 07:30] LABS: Basophils # (auto) 0.02 K/uL (0-0.2); Basophils % (auto) 0.1 %; Eosinophils # (auto) 0.13 K/uL (0-0.50); Eosinophils % (auto) 0.7 %; Hematocrit (blood only) 36.2 % (37.0-47.0); Hemoglobin 12.4 g/dl (12.0-16.0); Immature Granulocytes # (auto) 0.17 K/uL (0.01-0.20); Lymphocytes # (auto) 1.49 K/uL (1.2-3.4); Lymphocytes % (auto) 8.4 %; Mean Corpuscular Hemoglobin 32.6 pg (25.0-34.0); Mean Corpuscular Hgb Conc 34.3 g/dL (32.0-36.0); Mean Corpuscular Volume 95.3 fL (80.0-100.0); Mean Platelet Volume 9.9 fL (9.4-12.4); Monocytes # (auto) 2.11 K/uL (0.11-0.59); Monocytes % (auto) 11.9 %; Neutrophils # (auto) 13.77 K/uL (1.40-6.50); Neutrophils % (auto) 77.9 %; Platelet Count 299 K/uL (130-400); RDW Coefficient of Variation 14.2 % (11.5-14.5); RDW Standard Deviation 49.7 fL (36.4-46.3); White Blood Count 17.69 K/ul (4.8-10.8)
[2022-06-08] MEDS: dilTIAZem HCL 240 MG CAPCR PO SCH (07:51)
[2022-06-08] MEDS: METOPROLOL SUCC 25MG EXT REL TAB PO SCH (07:51)
[2022-06-08 08:27] LABS: Calcium 9.9 mg/dl (8.5-10.1); Creatinine Clr Calc Pharmacy 45.4 ml/min; Potassium 3.6 mmol/L (3.5-5.1)
[2022-06-08 08:39] LABS: BUN Creatinine Ratio 19.1 (10-20); Est GFR (African American) 58.9 ml/min; Est GFR (Non-African American) 50.8 ml/min
--- NOTE | 2022-06-08 09:46 | Discharge Summary ---
Date of Service June 08, 2022 Admission HPI Per Admitting Provider Chhaya Araujo is a 71yo female with history of atrial fibrillation on Apixaban anticoagulation presenting with back pain with radiation into the left anterior thigh. Patient reports going to bed in her usual state of health on 05/30/22. When she woke in the morning of 05/31/22 she had significant pain in her back. Her pain has progressed, radiates into her left anterior thigh. She denies numbness, tingling or weakness. Is having a difficult time ambulating due to pain. Discomfort is relieved slighty with flexion at the waist. No fall, no trauma. No history of prior. She was prescribed prednisone by her PCP on 05/30/22 and has been taking it with no improvement. She was seen in the ER on 05/31/22 with these complaints and was given Dexamethasone 10mg IV, Morphine 4mg IV, Zofran 4mg IV and discharged home on Oxycodone. Xray of the lumbar spine without fracture. In the ER she was given Fentanyl 25mcg, Dilaudid 0.25mg x 2, Tylenol 1000mg, Toradol 10mg and Zofran 4mg Still with pain Principal Diagnosis Lumbar disc herniation with radiculopathy Discharge Data Allergies Allergy/AdvReac Type Severity Reaction Status Date / Time No Known Allergies Allergy Verified 05/30/22 13:18 Consultations 06/02/22 06:30 ED Decision to Admit Stat 06/04/22 09:00 Consult Orthopedic Surgery Routine 06/05/22 11:12 Consult Anesthesiology Routine Procedures Performed Operation Date: 06/06/22 07:00 Actual Procedures p L3-L4 Decompression and Fusion, Spinal Cord Monitoring(Not Applicable) - Margarito Clemens DO Ordered Studies 06/02/22 04:32 CT lumbar spine wo con Urgent 06/04/22 09:29 MRI Lumbar Spine [MR lumbar spine wo/w con] Urgent 06/06/22 [place] lumbar spine 2-3V Routine Hospital Course (1) Lumbar disc herniation with radiculopathy: Patient was admitted with severe radiculopathy after going medical clearance and holding her anticoagulation she underwent lumbar decompression fusion tolerated well stable orthopedic for postoperative. Postop day 1 she was up and ambulating leg symptoms markedly improved. She breast postop day #2. YANA drain decreasing appropriately. Pain well controlled. Excellent strength testing. Separately discharged home. Discharge orders instructions from the chart for further review. Total Time Total Time Spent Total Time Spent (In Minutes): 20 minutes Discharge Plan Discharge Items Patient Disposition: Home - Self-Care Reason For Visit: INTRACTABLE BACK PAIN Discharge Diagnosis: L3-L4 foraminal disc herniation with radiculopathy Condition on Discharge: Good Activity: As commented below Non-emergency contact: Primary Care Provider Call non-emergency contact if: you have any medication questions Follow-up/Referrals: Ghazal Alcantar CRNP [Primary Care Provider] - Diet: Regular Addtl Attending Provider Instructions: ACTIVITY RECOMMENDATIONS: SELF CARE INSTRUCTIONS AFTER THORACIC/LUMBAR FUSIONS 1. You may walk to your tolerance. It is good exercise for your legs and back. Expect some back and intermittent leg aches and pains. 2. You may perform "counter-top" level activities (make a sandwich, jennifer with a project, etc.). 3. No bending or lifting of more than 10 pounds or back twisting of any nature (roll like a log when turning in bed). 4. You may ride in a car for 20-30 minutes at a time. No driving until after your first visit with your doctor. 5. Frequent changes of position and restricting sitting to 30 minutes at a time will help limit the amount of back spasms and stiffness you may experience. 6. You may discontinue the use of ambulatory aids (cane, crutches, etc.) once your strength and confidence allow. 7. You may commutator inspector the shower and let water strike your incision when you arrive home at least once daily. Do not take a tub bath, sit in a hot tub or go into a swimming pool until after your first recheck in the office. SPECIAL CARE INSTRUCTIONS: VERY IMPORTANT TO READ AND REVIEW A. Your surgical incision has been closed with a cosmetic suture under the skin that will dissolve in about 6 weeks. In 14 days, you can use a pair of clean scissors and cut the suture that is left outside of the skin at the ends of your incision. 1. The small skin tapes can be removed 7 days after surgery if they have not fallen off by that point. 2. You may keep the wound open to air as much as possible to promote healing after post-op day number 5 unless told otherwise by your doctor. 3. If you think the wound looks like it is becoming infected (redness or worsening drainage) and/or you are experiencing fever, chill or worsening back pain and muscle spasms, contact the office so that we may evaluate you as soon as possible. B. Complications are uncommon, but please contact us if you have any signs or symptoms of: 1. wound infection (fever higher than 102.5 degrees F, redness, separation of wound, drainage, or increasing pain from the incision) 2. blood clots in legs (pain, swelling, redness and warmth in legs) 3. urinary tract infection (fever higher than 102.5 degrees F, burning upon urination or increased frequency of urination) 4. nerve problems (inability to walk on your toes or heels, numbness, loss of bowel or bladder control) 5. any other symptoms that concern you C. Please call the office at if you have any concerns or questions about your operation or recovery. D. No smoking! Smoking drastically decreases the chance of a solid fusion. E. Do not take any anti-inflammatory medications (Indocin, Advil, Motrin, Aspirin, Naprosyn, etc.) as these may inhibit the chance of a solid fusion. Tylenol is okay to take for pain. MANAGING PAIN AFTER SPINAL SURGERY 1. Narcotic medication is intended for short-term use and will be provided for surgical pain. Surgical pain usually lasts for a period of 4-6 weeks. Narcotic medication includes Percocet, Vicodin, Darvocet, Tylenol #3 or Lortab. 2. Longer-term pain is more appropriately treated with non-narcotic medication such as Tylenol ES. 3. Muscle spasm is not appropriately treated with narcotics. Muscle relaxers such as Soma, Flexeril or Skelaxin can be used along with Tylenol ES. 4. Remember that we all live with some "aches and pains". This is not unusual or uncommon after an injury or as we get older. a. Back pain is expected and may include muscle spasms for 4 to 6 weeks after surgery. The pain should gradually improve. If the pain worsens for no apparent reason, please contact the office. b. Intermittent leg pain may also be experienced and should not be concerned about unless it worsens for no apparent reason. If so, please contact the office. 5. We will provide appropriate medication within the normal guidelines of their prescribed use. We will also be very cautious and aware of potential abuse and extended duration of patients' medication needs. a. Pain medications are for your comfort and to assist with sleep and rest so that the tissue can heal. They are not provided in order to return to normal activity and should not be used through the day. To do so or worsening pain at night can result from ongoing tissue damage and development of tolerance to the prescribed medicine. 6. Please allow 2-3 days to process refills. Prescriptions will not be mailed but must be picked up at the office. FOLLOW UP VISIT: Keep your scheduled follow-up appointment. Any questions, please call the office at . Pending Studies at Discharge: No Stand-Alone Forms: [facility] [employer], Smoking Cessation Medications and DC Order Prescriptions: New oxycodone 5 mg tablet 5 mg PO Q6H PRN (Reason: pain, severe) Qty: 30 0RF tramadol 50 mg tablet 50 mg PO Q6H PRN (Reason: pain, moderate) Qty: 30 0RF Continued triamterene-hydrochlorothiazid 37.5-25 mg capsule 1 cap PO DAILY PRN (Reason: edema) Qty: 30 5RF lorazepam 0.5 mg tablet 0.5 mg PO DAILY PRN (Reason: anxiety) Qty: 20 1RF Rx Instructions: as needed for panic attacks buspirone 7.5 mg tablet 7.5 mg PO BID PRN (Reason: anxiety) Qty: 30 11RF prednisone 20 mg tablet 20 mg PO .COMPLEX Qty: 30 0RF Rx Instructions: 20 mg orally 3 tab for 5 days, 2 tab for 5 days, 1 tab for 5 days; diltiazem HCl 240 mg capsule,extended release 24hr 240 mg PO DAILY Qty: 30 11RF metoprolol succinate 25 mg tablet extended release 24 hr 25 mg PO DAILY Qty: 30 11RF Eliquis 5 mg tablet 5 mg PO BID Qty: 60 11RF pantoprazole 40 mg tablet,delayed release (DR/EC) 40 mg PO DAILY Qty: 30 11RF rizatriptan 10 mg tablet 10 mg PO Q2H PRN (Reason: migraine headache) Qty: 30 5RF Rx Instructions: until response; not to exceed 3 doses in a 24 hour period melatonin 5 mg Tablet,Chewable 5 mg PO HS PRN (Reason: Sleep) mwjjvtfv-pwcazh-eghnsfeq acid 500 mg-800 mcg- 50 mg Capsule 1 cap PO DAILY oxycodone 5 mg tablet 5 mg PO Q6H PRN (Reason: pain) Qty: 10 0RF Rx Instructions: Initial Treatment cyclobenzaprine 5 mg tablet 5 mg PO TID PRN (Reason: muscle spasm) Qty: 10 0RF Discharge Orders: Discharge Order (Routine); Ordered 06/08/22 Ordered By: Margarito Clemens Admission Data Admit Date/Time: 06/02/22 06:39 Attending Provider: Antoni Tabares Admit Provider: Margarito Clemens Primary Care Provider: Ghazal Alcantar Other Providers: Elvira Fisher ; Margarito Clemens ; Kasandra Pena ; Gayathri Welsh ; Telma Kurtz ; Manda Bain ; Miracle Munroe ; Dank Whitley ; Brandon Espinoza ; Sergio Rowan ; Norman Joy ; Laura Joy ; Osvaldo Chawla ; Rebecca Greenwood ; Indra Parikh ; Sheldon Beasley ; Moise Gaines ; Isrrael Ibrahim ; Marcia Will ; Francisco Serrano ; Angélica Sam ; Asya Serrano ; Emerson Castro ; Renay Handy ; Merlin Zarate. ; Dolores Terry ; Vernell Moore ; Javier Mtz ; Elvira Hein ; Fawn Christianson ; Amalia Odell ; Constance Garcia ; Gumaro Garcia V ; Nestor Urrutia ; Gayathri Kingsley ; Raymond White ; Kourtney Laureano ; Gumaro Solitario ; Richie Will ; Herb Han ; Rocio Marin ; Cary Hinojosa ; Gumaro Cordon ; Mitchell Hurt ; Faith Quiles ; Jeff Barnett ; Leander Ibrahim ; Sol Bojorquez ; Cuba Cunningham ; Riley Chavez ; Jian Villaseñor ; Cuba Tyler ; Dank Bernstein Jr ; Angie Guido ; Leslie Levin ; Maggie Martinez ; Javier Sierra ; Manda Barahona ; Norman Chauhan ; Lucian Weber I. ; Adriana Banerjee ; Leslie Cain ; Kelsy Bledsoe ; Omid Hernandez
--- NOTE | 2022-06-08 11:07 | Hospitalist Progress Note ---
Date of Service June 08, 2022 Assessment & Plan (1) Lumbar disc herniation with radiculopathy: Plan: Patient with acute onset lumbar pain with left sided radiculopathy. Patient states this first began in January after running into a burt totter while playing with her granddaughter. She was treated with prednisone and PT and the pain completely resolved until last week. She states Saturday she went to bed fine and woke up Saturday with some mild left thigh pain that progressed. She states she had relief with being bent over. She saw her PCP and was rx some prednisone without any relief. CT of the back with disc bulges at multiple levels. She has been taking steroids, Flexeril and oxycodone at home with minimal improvement. - L foraminal disc protrusion L3-4 s/p lumbar decompression and fusion pod #2 - Tylenol 1000mg po TID - Oxycodone 5-10mg q 4 hours prn pain 6 or less/10 - YANA drain management per orthopsine s/p removal on 06/08 - PT/OT evaluation -- did well, cleared for dc home - Maintain bowel regimen, continue Miralax daily until BM occurs, hold/stop for loose stools (2) Hyponatremia: Plan: - Likely combination of surgery but patient is also on Maxzide - Na 131 (chemistry profile reviewed today) - Maxzide held 06/08, Na 137 (3) Leukocytosis: Plan: - CBC reviewed, wbc count 18,280 - Suspect steroid induced, no s/sx concerning infection, afebrile, HD stable - Downtrending (4) Hypertension: Plan: Blood pressure elevated this AM, patient uncomfortable 134/86 - Continue Diltiazem and Metoprolol - Maxzide held 06/08, BP 106/67 - Would recommend continuing to hold Maxzide and checking BP at home, can discuss resumption with PCP (5) Atrial fibrillation: Plan: Chronic, rate controlled - Continue Diltiazem 240mg po daily - Continue metoprolol 25mg daily - On Eliquis which has been placed on hold for surgery-resume upon discharge (6) Adrenal nodule: Plan: Noted on imaging from 2018 - nodular thickening and partially calcified right adrenal gland. (7) Anxiety: Plan: Chronic. - Continue Buspirone PRN Plan Patient is doing well post operatively and is medically stable for discharge. Dc order and summary has been addressed by Dr. Clemens. Above plan of care has been d/w Dr. Tabares. Admission and Anticipated Discharge Date Admission Date: June 02, 2022 Subjective Patient seen on rounds today. Back incision is sore but otherwise no uncontrolled pain. Able to void, passing flatus. No BM since surgery. Denies fever/chills, cp, or dyspnea. Physical Exam Physical Exam: GENERAL: 71 yo Well-developed, well-nourished WF. NAD. LUNGS: Clear to auscultation bilaterally. CARDIOVASCULAR: S1 S2. No M/G/R. ABDOMEN: Soft, non-tender. Bowel sounds normoactive x 4 quad. EXTREMITIES: No edema. BLE strength 5/5. Peripheral pulses +2/4. Results & Data Results & Data ([facility]) Vital Signs (Past 12 Hours) Vital Signs Temp Pulse Pulse Resp BP BP Pulse Ox 06/08/22 09:49 36.8 C 103 H 97 H 15 98/70 L 106/67 100 06/08/22 08:41 36.8 C 103 H 15 98/70 L 100 O2 Del Method 06/08/22 09:49 06/08/22 08:41 Room Air PG Care Time/CCT Total # of Minutes Spent Total Time Spent with Patient: Total time spent is greater than 50% in coordination of care (as documented) at patient's floor/unit and/or counseling patient: Coding Level of Care Code 17508 SUB INP/OBS CARE 2/35MIN Diagnoses Lumbar disc herniation with radiculopathy M51.16 Hyponatremia E87.1 Leukocytosis D72.829 Hypertension I10 Atrial fibrillation I48.91 Adrenal nodule E27.9 Anxiety F41.9
== END 2022-06-08 11:44 | disposition home or self-care (01) | DRG 454 ==
LOC: ED 04:16 → 3E 06:39 → SUATTDRO 06:39 → 3E 07:59